=== PATIENT | female | born 1950 ===

== ENCOUNTER 2023-10-07 10:30 | Outpatient (RCR) | payer MEDICARE, SELFPAY ==
--- NOTE | 2023-08-24 17:36 | PT.OIE ---
Current Diagnoses Pain in unspecified ankle and joints of unspecified foot (08/24/23) Other specified joint disorders, right ankle and foot (08/24/23) Unsteadiness on feet (08/24/23) Presence of right artificial ankle joint (08/24/23) Visit Care Team Role Provider Type Harleen Cancino PA-C Family Provider Physician Car Racer Primary Care Provider Specialty: Medical Address: [place], [address] Email: [email or web address] Pablito Santizo DO Attending Provider Non-Staff Referring Provider Specialty: Orthopedics Address: [address] [place] [address], [id number] Email: Physical Therapy Initial Evaluation PT-OP-A Visit Information Start: 08/09/23 17:44 Freq: Status: Active Protocol: Document 08/24/23 09:55 LRN (Rec: 08/24/23 10:41 LRN [id number]) Out-Patient Physical Therapy Visit Information Visit Information Visit Type Initial Evaluation Visit Start Time 09:55 Visit Stop Time 10:39 Visit Number 1 Evaluation Information Evaluation Date 08/24/23 Precautions Precautions Arthritis, R ankle replacement 05/2022, lorin 1993. PT-OP-B Current Condition Start: 08/09/23 17:44 Freq: Status: Active Protocol: Document 08/24/23 09:55 LRN (Rec: 08/24/23 10:41 LRN [id number]) Current Condition History of Current Condition Onset Date 06/2023 Current Complaints Meds for R ankle pain, wants to eliminate pain & address scar tissue History of Current Condition Surgery on R ankle in May with subsequent physical therapy with slowly improvement. On 06/2023,medial side of the R ankle started hurting. Pain was achy and sometimes shooting up the ankle. X-rays showed outcome of surgery was good, no bony changes. Currently once in awhile she has sharp pain radiating up the ankle. Surgeon thought it was because of scar tissue and gave prescription of pain med (high dose IBP), that she has taken for over a month; therefore no pain. Sent to PT to see if there is anything that can ge done. Unsteady on her feet with stair ambulation, but can walk around w/o a problem. Hiked for a couple of days without trouble on mostly flat land. Prior Treatments and Tests Medication Future Testing and Treatments Planned Next surgeon appt will be when done with therapy and done with meds at the end of this month. 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 Neck & back pain daily waking up in mornings, with stress and driving; arthritis. Spiral fx of L tibia - 1969, R ankle replacement 05/2022, PT-OP-C Subjective Start: 08/09/23 17:44 Freq: Status: Active Protocol: Document 08/24/23 09:55 LRN (Rec: 08/24/23 10:41 LRN [id number]) Patient Questionnaires Foot & Ankle Ability Measure- ADL and Sports FAAM-ADL Score 74 FAAM-ADL Impairment 1 to 19% Impaired (Score 67-83 ) FAAM-Sport Score 10 FAAM-Sport Impairment 60 to 79% Impaired (Score 6-11 ) Lower Extremity Functional Scale LEFS Score 61 LEFS Impairment 20 to 39% Impaired (Score 48- 62) OP-PT Pain Assessment Pain Assessment Grid Paper Pain Assessment Grid Completed Yes Location R medial ankle Pain Location Details R medial ankle joint Intensity 3 Scale Used Numeric (0 - 10) Description Aching,Sharp Frequency Intermittent Pain Alleviating Factors Medication PT-OP-D Balance Start: 08/09/23 17:44 Freq: Status: Active Protocol: Document 08/24/23 09:55 LRN (Rec: 08/24/23 10:41 LRN [id number]) Balance Tests Romberg Romberg EO & EC - 60+ secs Single Limb Standing Single Limb- Right 12 Single Limb- Left 5 PT-OP-E Functional Tests Start: 08/09/23 17:44 Freq: Status: Active Protocol: Document 08/24/23 09:55 LRN (Rec: 08/24/23 10:41 LRN [id number]) Functional Tests Timed Up and Go (TUG) Score 11 Comments Webbed chair, no use of hands, slip on shoes. TUG Impairment Rating 1 to <20% Impaired (Score 11) PT-OP-G Mobility & Gait Start: 08/09/23 17:44 Freq: Status: Active Protocol: Document 08/24/23 09:55 LRN (Rec: 08/24/23 10:41 LRN [id number]) OP Gait Assessment Gait Gait Assistance Required: Independent Assistive Devices Assistive Device None Comments Gait Comments Excessive sway. Stair Climbing Evaluation Evaluation Level of Assist On Stairs Independent,Standby Assistance Devices Stair Climbing Assistive Devices None Technique/Endurance Stair Climbing Direction Ascend and Descend Stair Climbing Technique Step Over Step Number of Steps Climbed 4 Comments Stair Climbing Comments Unsteady with ascending and worse with descending stairs. PT-OP-H Neuro Start: 08/09/23 17:44 Freq: Status: Active Protocol: Document 08/24/23 09:55 LRN (Rec: 08/24/23 16:50 LRN [id number]) Sensation Evaluation Gross Sensation Gross Sensation WNL PT-OP-J Posture/Palpation/Skin Start: 08/09/23 17:44 Freq: Status: Active Protocol: Document 08/24/23 09:55 LRN (Rec: 08/24/23 10:41 LRN [id number]) Posture Evaluation Position Standing Head/C-Spine Posture Forward Head L-Spine Posture Flattened Shoulder Posture (L) Elevated Hip Posture (L) Internally Rotated,(R) Externally Rotated Ankle/Foot Posture (R) Calcaneal Inversion Foot Arch (L) Medium Arch,(R) Medium Arch Comments Posture Comments head shifted right, sway back posturing with T/S posterior of greater trochanter, atrophy of gastrocnemius on right, decreased gluteal muscle tone bilaterally, bunions bilaterally. Palpation Assessment Location R ankle Palpation Location R ankle Palpation Findings Soft Tissue Tightness Palpation Details Decreased skin mobility. PT-OP-K Range of Motion Start: 08/09/23 17:44 Freq: Status: Active Protocol: Document 08/24/23 09:55 LRN (Rec: 08/24/23 10:41 LRN [id number]) Knee Goniometric Range of Motion Knee Right Knee ROM WFL Yes Patient Position Supine Comments Decreased with DF & IV Left Knee ROM WFL Yes Ankle and Foot Goniometric Range of Motion Ankle and Foot Right Active Testing Position Supine Dorsiflexion with Knee Extended 5 Plantarflexion 46 Inversion 15 Eversion 10 Left Active Testing Position Supine Dorsiflexion with Knee Extended 12 Plantarflexion 45 Inversion 28 Eversion 13 PT-OP-M Strength Start: 08/09/23 17:44 Freq: Status: Active Protocol: Document 08/24/23 09:55 LRN (Rec: 08/24/23 10:41 LRN [id number]) Knee Strength Knee Manual Muscle Testing Right Comments Strength is 5/5 in major muscle groups. Left Comments Strength is 5/5 in major muscle groups. Ankle/Foot Strength Ankle and Foot Manual Muscle Testing Right Comments Strength is 5/5 in major muscle groups. Left Comments Strength is 5/5 in major muscle groups. PT-OP-Q Treatments Start: 08/09/23 17:44 Freq: Status: Active Protocol: Document 08/24/23 09:55 LRN (Rec: 08/24/23 10:41 LRN [id number]) Self-Care/Home Management Treatment Education Other Education Discussed results of evaluation, goals, and plan of care (POC) with pt, discussed attendance/cx/dns policy; pt agreeable to goals, attendance /cx/dns policy and POC. Activities Self-Care/Home Management Activities I/S pt in HEP: Active ankle AROM: sitting DF/IV/EV PT-OP-T Assessment and Plan Start: 08/09/23 17:44 Freq: Status: Active Protocol: Document 08/24/23 09:55 LRN (Rec: 08/24/23 10:41 LRN [id number]) Physical Therapy Assessment Rehab Potential Rehabilitation Potential Good Evaluation Complexity Number of Personal Factors/Comorbidities 3 or More Number of Body Systems Impaired 4 or More Clinical Presentation at Evaluation Stable Impairments Impairments Balance,Functional Mobility, Pain,ROM,Soft Tissue Mobility, Transfers Goals Two Impairment Decreased balance and stability with stair ambulation. Impairment Balance: SLS 5 secs left, 12 secs right. Short Term Goal (STG) Improve TUG to 10 secs and SLS 12 secs bilaterally. STG Duration 4 wks-09/24/23 Tuck Pointer Goal (LTG) Improve SLS with pt able to ambulate up/down 4-8 steps safely with a stable gait w/o use of railing. LTG Duration 8 wks-10/22/23 One Impairment Pt lacks appropriate self care HEP Short Term Goal (STG) Pt will be educated in HEP of balance ex's. STG Duration 4 wks-09/24/23 Tuck Pointer Goal (LTG) Pt will be independent in an effective self care HEP for R ankle mobility and functional strengthening of the R>L hip and hip/knee/ankle complex. LTG Duration 8 wks-10/22/23 Three Impairment Decreased functional mobility due to pain. Impairment Difficulty getting up/down off the ground w/o having to use a tool in the ground to push on. 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 Ankle AROM in deg's (supine): DF (knee extended) 5 right, 12 left, IV 15 right, 28 left, EV 10 right, 13 left (PF is WNL). Short Term Goal (STG) Improve R ankle mobility with pt able to get up/down off the ground w/o having to use a tool in the ground to push on. 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 LTG Duration 8 wks-10/22/23 Assessment Summary Assessment Pt is a 73 yo female who I am familiar with. She present with decreased standing static and dynamic balance and instability with stair ambulation, she is dysfunctional with transfer from squat to stand due to decreased R ankle mobility, pain, and hip weakness. Pt will will benefit from skilled physical therapy to improve safety with stair ambulation and function with gardening. Pt will benefit from therapy to work towards achieving the above stated goals. Physical Therapy Plan Frequency and Duration Frequency of Treatment 2x/Week Duration of treatment (weeks) 8 Plan of Care Start Date 08/24/23 Plan of Care End Date 10/22/23 Therapeutic Interventions Therapeutic Interventions Balance Training,Gait Training ,Home Exercise Program,Manual Therapy,Neuromuscular Re- education,Self-Care/Home Management,Soft Tissue Mobilization,Therapeutic Activities,Therapeutic Exercises Modalities Cold Pack/Ice Massage Next Visit Focus/Plan Next Note Type Treatment Note Next Visit Plan Next: Check hip/core strength and assess Balance, Tinetti and/or Katz. HEP: R ankle ROM ex and hip/ knee/ankle complex strengthening and if needed core strengthening. STM: R medial ankle to improve mobility. Stair & gait training Neuro Re-ed for balance ( static & dynamic) training.
--- NOTE | 2023-08-24 17:37 | PT.OPPOC ---
Physical, Occupational & Speech Therapy At [facility] Current Diagnoses Pain in unspecified ankle and joints of unspecified foot (08/24/23) Other specified joint disorders, right ankle and foot (08/24/23) Unsteadiness on feet (08/24/23) Presence of right artificial ankle joint (08/24/23) Visit Care Team Role Provider Type Harleen Cancino PA-C Family Provider Physician Heavy Equipment Sales Manager Primary Care Provider Specialty: Medical Address: [place], [address] Email: [email or web address] Pablito Santizo DO Attending Provider Non-Staff Referring Provider Specialty: Orthopedics Address: [address] [place] [address], [id number] Email: Plan Of Care PT-OP-T Assessment and Plan Start: 08/09/23 17:44 Freq: Status: Active Protocol: Document 08/24/23 09:55 LRN (Rec: 08/24/23 10:41 LRN [id number]) Physical Therapy Assessment Rehab Potential Rehabilitation Potential Good Evaluation Complexity Number of Personal Factors/Comorbidities 3 or More Number of Body Systems Impaired 4 or More Clinical Presentation at Evaluation Stable Impairments Impairments Balance,Functional Mobility, Pain,ROM,Soft Tissue Mobility, Transfers Goals Two Impairment Decreased balance and stability with stair ambulation. Impairment Balance: SLS 5 secs left, 12 secs right. Short Term Goal (STG) Improve TUG to 10 secs and SLS 12 secs bilaterally. STG Duration 4 wks-09/24/23 Armature Bander Goal (LTG) Improve SLS with pt able to ambulate up/down 4-8 steps safely with a stable gait w/o use of railing. LTG Duration 8 wks-10/22/23 One Impairment Pt lacks appropriate self care HEP Short Term Goal (STG) Pt will be educated in HEP of balance ex's. STG Duration 4 wks-09/24/23 Half-Way Goal (LTG) Pt will be independent in an effective self care HEP for R ankle mobility and functional strengthening of the R>L hip and hip/knee/ankle complex. LTG Duration 8 wks-10/22/23 Three Impairment Decreased functional mobility due to pain. Impairment Difficulty getting up/down off the ground w/o having to use a tool in the ground to push on. 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 Ankle AROM in deg's (supine): DF (knee extended) 5 right, 12 left, IV 15 right, 28 left, EV 10 right, 13 left (PF is WNL). Short Term Goal (STG) Improve R ankle mobility with pt able to get up/down off the ground w/o having to use a tool in the ground to push on. 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 LTG Duration 8 wks-10/22/23 Assessment Summary Assessment Pt is a 73 yo female who I am familiar with. She present with decreased standing static and dynamic balance and instability with stair ambulation, she is dysfunctional with transfer from squat to stand due to decreased R ankle mobility, pain, and hip weakness. Pt will will benefit from skilled physical therapy to improve safety with stair ambulation and function with gardening. Pt will benefit from therapy to work towards achieving the above stated goals. Physical Therapy Plan Frequency and Duration Frequency of Treatment 2x/Week Duration of treatment (weeks) 8 Plan of Care Start Date 08/24/23 Plan of Care End Date 10/22/23 Therapeutic Interventions Therapeutic Interventions Balance Training,Gait Training ,Home Exercise Program,Manual Therapy,Neuromuscular Re- education,Self-Care/Home Management,Soft Tissue Mobilization,Therapeutic Activities,Therapeutic Exercises Modalities Cold Pack/Ice Massage Next Visit Focus/Plan Next Note Type Treatment Note Next Visit Plan Next: Check hip/core strength and assess Balance, Tinetti and/or Katz. HEP: R ankle ROM ex and hip/ knee/ankle complex strengthening and if needed core strengthening. STM: R medial ankle to improve mobility. Stair & gait training Neuro Re-ed for balance ( static & dynamic) training. Plan of Care Dates Plan of Care Start Date 08/24/23 Plan of Care End Date 10/22/23 Electronically Signed by: Naila Lyon, PT 08/24/23 1737 If you are in agreement with this Plan of Care, please return a signed and dated copy. I have reviewed this Plan of Care and certify that the skilled therapy services above are required to meet the patient?s needs. Physician Signature Date Printed Name and Credentials Clinical Instructor Signature Printed Name and Credentials
--- NOTE | 2023-08-26 11:15 | PT.OTN ---
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 On 06/2023,medial side of the R ankle started hurting. Pain was achy and sometimes shooting up the ankle. X-rays showed outcome of surgery was good, no bony changes. Currently once in awhile she has sharp pain radiating up the ankle. Surgeon thought it was because of scar tissue and gave prescription of pain med (high dose IBP), that she has taken for over a month; therefore no pain. Sent to PT to see if there is anything that can ge done. Unsteady on her feet with stair ambulation, but can walk around w/o a problem. Hiked for a couple of days without trouble on mostly flat land. Prior Treatments and Tests Medication Future Testing and Treatments Planned Next surgeon appt will be when done with therapy and done with meds at the end of this month. 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 Neck & back pain daily waking up in mornings, with stress and driving; arthritis. 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 Compliant with AROM R ankle ex. PT-OP-D Balance Start: 08/09/23 17:44 Freq: Status: Active Protocol: Document 08/24/23 09:55 LRN (Rec: 08/24/23 10:41 LRN [id number]) Balance Tests Romberg Romberg EO & EC - 60+ secs Single Limb Standing Single Limb- Right 12 Single Limb- Left 5 PT-OP-E Functional Tests Start: 08/09/23 17:44 Freq: Status: Active Protocol: Document 08/24/23 09:55 LRN (Rec: 08/24/23 10:41 LRN [id number]) Functional Tests Timed Up and Go (TUG) Score 11 Comments Webbed chair, no use of hands, slip on shoes. TUG Impairment Rating 1 to <20% Impaired (Score 11) PT-OP-G Mobility & Gait Start: 08/09/23 17:44 Freq: Status: Active Protocol: Document 08/24/23 09:55 LRN (Rec: 08/24/23 10:41 LRN [id number]) OP Gait Assessment Gait Gait Assistance Required: Independent Assistive Devices Assistive Device None Comments Gait Comments Excessive sway. Stair Climbing Evaluation Evaluation Level of Assist On Stairs Independent,Standby Assistance Devices Stair Climbing Assistive Devices None Technique/Endurance Stair Climbing Direction Ascend and Descend Stair Climbing Technique Step Over Step Number of Steps Climbed 4 Comments Stair Climbing Comments Unsteady with ascending and worse with descending stairs. PT-OP-H Neuro Start: 08/09/23 17:44 Freq: Status: Active Protocol: Document 08/24/23 09:55 LRN (Rec: 08/24/23 16:50 LRN [id number]) Sensation Evaluation Gross Sensation Gross Sensation WNL PT-OP-J Posture/Palpation/Skin Start: 08/09/23 17:44 Freq: Status: Active Protocol: Document 08/24/23 09:55 LRN (Rec: 08/24/23 10:41 LRN [id number]) Posture Evaluation Position Standing Head/C-Spine Posture Forward Head L-Spine Posture Flattened Shoulder Posture (L) Elevated Hip Posture (L) Internally Rotated,(R) Externally Rotated Ankle/Foot Posture (R) Calcaneal Inversion Foot Arch (L) Medium Arch,(R) Medium Arch Comments Posture Comments head shifted right, sway back posturing with T/S posterior of greater trochanter, atrophy of gastrocnemius on right, decreased gluteal muscle tone bilaterally, bunions bilaterally. Palpation Assessment Location R ankle Palpation Location R ankle Palpation Findings Soft Tissue Tightness Palpation Details Decreased skin mobility. PT-OP-K Range of Motion Start: 08/09/23 17:44 Freq: Status: Active Protocol: Document 08/24/23 09:55 LRN (Rec: 08/24/23 10:41 LRN [id number]) Knee Goniometric Range of Motion Knee Right Knee ROM WFL Yes Patient Position Supine Comments Decreased with DF & IV Left Knee ROM WFL Yes Ankle and Foot Goniometric Range of Motion Ankle and Foot Right Active Testing Position Supine Dorsiflexion with Knee Extended 5 Plantarflexion 46 Inversion 15 Eversion 10 Left Active Testing Position Supine Dorsiflexion with Knee Extended 12 Plantarflexion 45 Inversion 28 Eversion 13 PT-OP-M Strength Start: 08/09/23 17:44 Freq: Status: Active Protocol: Document 08/24/23 09:55 LRN (Rec: 08/24/23 10:41 LRN [id number]) Knee Strength Knee Manual Muscle Testing Right Comments Strength is 5/5 in major muscle groups. Left Comments Strength is 5/5 in major muscle groups. Ankle/Foot Strength Ankle and Foot Manual Muscle Testing Right Comments Strength is 5/5 in major muscle groups. Left Comments Strength is 5/5 in major muscle groups. PT-OP-Q Treatments Start: 08/09/23 17:44 Freq: Status: Active Protocol: Document 08/26/23 10:35 SP (Rec: 08/26/23 11:17 SP [id number]) Therapeutic Exercises Supine Exercises R ankle isometric Supine Exercise Name PF, DF, IV, EV Resistance (progress to use TB next tx) Reps/Minutes 10 reps 10 SH each Comments pnfree Standing Exercises ankle mobility Standing Exercise Name added to HEP Side right Resistance foot on chair, attempt knee pass toe Reps/Minutes x10 Comments pnfree response- limited into DF calf stretch Standing Exercise Name added to HEP: gastroc only Side right Equipment Used lunge stance Reps/Minutes 30 SH x3 Comments knee straight for now, pain medial distal malleolus into soleus stretch DF Manual Therapy Treatment Soft Tissue Mobilization calf Body Location R Comments STMs and ed use rolling pin- support flexibility descending stairs Joint Mobilizations R ankle Joint distal tibfib, talocrual, calcaneal distraction /c med/ lat mob Direction AP Grade II Body Position Supine Comments slight discomfort tibia PA while in neutral ankle pos PT-OP-T Assessment and Plan Start: 08/09/23 17:44 Freq: Status: Active Protocol: Document 08/26/23 10:35 SP (Rec: 08/26/23 11:17 SP [id number]) Physical Therapy Assessment Goals Two Impairment Decreased balance and stability with stair ambulation. Impairment Balance: SLS 5 secs left, 12 secs right. Short Term Goal (STG) Improve TUG to 10 secs and SLS 12 secs bilaterally. STG Duration 4 wks-09/24/23 Residential Goal (LTG) Improve SLS with pt able to ambulate up/down 4-8 steps safely with a stable gait w/o use of railing. LTG Duration 8 wks-10/22/23 One Impairment Pt lacks appropriate self care HEP Short Term Goal (STG) Pt will be educated in HEP of balance ex's. STG Duration 4 wks-09/24/23 [employer] Tower Goal (LTG) Pt will be independent in an effective self care HEP for R ankle mobility and functional strengthening of the R>L hip and hip/knee/ankle complex. LTG Duration 8 wks-10/22/23 Three Impairment Decreased functional mobility due to pain. Impairment Difficulty getting up/down off the ground w/o having to use a tool in the ground to push on. 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 Ankle AROM in deg's (supine): DF (knee extended) 5 right, 12 left, IV 15 right, 28 left, EV 10 right, 13 left (PF is WNL). Short Term Goal (STG) Improve R ankle mobility with pt able to get up/down off the ground w/o having to use a tool in the ground to push on. 08/26/23: added ankle isometric (progress TB next tx), ankle gastroc/soleus and ft on chair for mobility to support AROM allow descend stairs and yard work. 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 LTG Duration 8 wks-10/22/23 Assessment Summary Assessment Pt responded well to manual ankle ROM/mobs with only little discomfort over anterolateral R ankle during PA fib while held in DF neutral. No adverse affects reported during calf stretching or ankle mobility on chair/step to support increase DF. Will work toward strengthening next tx to allow R ankle ROM into DF for descending stairs and pushing wheelbarrow during yard work. Physical Therapy Plan Frequency and Duration Frequency of Treatment 2x/Week Duration of treatment (weeks) 8 Plan of Care Start Date 08/24/23 Plan of Care End Date 10/22/23 Therapeutic Interventions Therapeutic Interventions Balance Training,Gait Training ,Home Exercise Program,Manual Therapy,Neuromuscular Re- education,Self-Care/Home Management,Soft Tissue Mobilization,Therapeutic Activities,Therapeutic Exercises Modalities Cold Pack/Ice Massage Next Visit Focus/Plan Next Note Type Treatment Note Next Visit Plan Assess added ankle mobility and Next tx: Check hip/core strength and assess Balance, Tinetti and/or Katz. HEP: R ankle isometric ex and hip/knee/ankle complex strengthening and if needed core strengthening. STM: R medial ankle to improve mobility. Stair & gait training Neuro Re-ed for balance ( static & dynamic) training.
--- NOTE | 2023-09-02 16:06 | PT.OTN ---
Current Diagnoses Pain in unspecified ankle and joints of unspecified foot (09/02/23) Other specified joint disorders, right ankle and foot (09/02/23) Unsteadiness on feet (09/02/23) Presence of right artificial ankle joint (09/02/23) Physical Therapy Treatment Note PT-OP-A Visit Information Start: 08/09/23 17:44 Freq: Status: Active Protocol: Document 09/02/23 13:58 LRN (Rec: 09/02/23 14:32 LRN [id number]) Out-Patient Physical Therapy Visit Information Visit Information Visit Type Treatment Note Visit Note Pt 13' late for appt. Visit Start Time 13:58 Visit Stop Time 14:30 Visit Number 3 Evaluation Information Evaluation Date 08/24/23 Precautions Precautions Arthritis, R ankle replacement 05/2022-pt to avoid inclines. PT-OP-B Current Condition Start: 08/09/23 17:44 Freq: Status: Active Protocol: Document 08/24/23 09:55 LRN (Rec: 08/24/23 10:41 LRN [id number]) Current Condition History of Current Condition Onset Date 06/2023 Current Complaints Meds for R ankle pain, wants to eliminate pain & address scar tissue History of Current Condition Surgery on R ankle in May with subsequent physical therapy with slowly improvement. On 06/2023,medial side of the R ankle started hurting. Pain was achy and sometimes shooting up the ankle. X-rays showed outcome of surgery was good, no bony changes. Currently once in awhile she has sharp pain radiating up the ankle. Surgeon thought it was because of scar tissue and gave prescription of pain med (high dose IBP), that she has taken for over a month; therefore no pain. Sent to PT to see if there is anything that can ge done. Unsteady on her feet with stair ambulation, but can walk around w/o a problem. Hiked for a couple of days without trouble on mostly flat land. Prior Treatments and Tests Medication Future Testing and Treatments Planned Next surgeon appt will be when done with therapy and done with meds at the end of this month. 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 Neck & back pain daily waking up in mornings, with stress and driving; arthritis. 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 PT-OP-D Balance Start: 08/09/23 17:44 Freq: Status: Active Protocol: Document 08/24/23 09:55 LRN (Rec: 08/24/23 10:41 LRN [id number]) Balance Tests Romberg Romberg EO & EC - 60+ secs Single Limb Standing Single Limb- Right 12 Single Limb- Left 5 PT-OP-E Functional Tests Start: 08/09/23 17:44 Freq: Status: Active Protocol: Document 08/24/23 09:55 LRN (Rec: 08/24/23 10:41 LRN [id number]) Functional Tests Timed Up and Go (TUG) Score 11 Comments Webbed chair, no use of hands, slip on shoes. TUG Impairment Rating 1 to <20% Impaired (Score 11) PT-OP-G Mobility & Gait Start: 08/09/23 17:44 Freq: Status: Active Protocol: Document 08/24/23 09:55 LRN (Rec: 08/24/23 10:41 LRN [id number]) OP Gait Assessment Gait Gait Assistance Required: Independent Assistive Devices Assistive Device None Comments Gait Comments Excessive sway. Stair Climbing Evaluation Evaluation Level of Assist On Stairs Independent,Standby Assistance Devices Stair Climbing Assistive Devices None Technique/Endurance Stair Climbing Direction Ascend and Descend Stair Climbing Technique Step Over Step Number of Steps Climbed 4 Comments Stair Climbing Comments Unsteady with ascending and worse with descending stairs. PT-OP-H Neuro Start: 08/09/23 17:44 Freq: Status: Active Protocol: Document 08/24/23 09:55 LRN (Rec: 08/24/23 16:50 LRN [id number]) Sensation Evaluation Gross Sensation Gross Sensation WNL PT-OP-J Posture/Palpation/Skin Start: 08/09/23 17:44 Freq: Status: Active Protocol: Document 08/24/23 09:55 LRN (Rec: 08/24/23 10:41 LRN [id number]) Posture Evaluation Position Standing Head/C-Spine Posture Forward Head L-Spine Posture Flattened Shoulder Posture (L) Elevated Hip Posture (L) Internally Rotated,(R) Externally Rotated Ankle/Foot Posture (R) Calcaneal Inversion Foot Arch (L) Medium Arch,(R) Medium Arch Comments Posture Comments head shifted right, sway back posturing with T/S posterior of greater trochanter, atrophy of gastrocnemius on right, decreased gluteal muscle tone bilaterally, bunions bilaterally. Palpation Assessment Location R ankle Palpation Location R ankle Palpation Findings Soft Tissue Tightness Palpation Details Decreased skin mobility. PT-OP-K Range of Motion Start: 08/09/23 17:44 Freq: Status: Active Protocol: Document 08/24/23 09:55 LRN (Rec: 08/24/23 10:41 LRN [id number]) Knee Goniometric Range of Motion Knee Right Knee ROM WFL Yes Patient Position Supine Comments Decreased with DF & IV Left Knee ROM WFL Yes Ankle and Foot Goniometric Range of Motion Ankle and Foot Right Active Testing Position Supine Dorsiflexion with Knee Extended 5 Plantarflexion 46 Inversion 15 Eversion 10 Left Active Testing Position Supine Dorsiflexion with Knee Extended 12 Plantarflexion 45 Inversion 28 Eversion 13 PT-OP-M Strength Start: 08/09/23 17:44 Freq: Status: Active Protocol: Document 08/24/23 09:55 LRN (Rec: 08/24/23 10:41 LRN [id number]) Knee Strength Knee Manual Muscle Testing Right Comments Strength is 5/5 in major muscle groups. Left Comments Strength is 5/5 in major muscle groups. Ankle/Foot Strength Ankle and Foot Manual Muscle Testing Right Comments Strength is 5/5 in major muscle groups. Left Comments Strength is 5/5 in major muscle groups. PT-OP-Q Treatments Start: 08/09/23 17:44 Freq: Status: Active Protocol: Document 09/02/23 13:58 LRN (Rec: 09/02/23 14:32 LRN [id number]) Therapeutic Exercises Supine Exercises R ankle isometric Supine Exercise Name PF, DF, IV, EV Resistance (progress to use TB next tx) Reps/Minutes 10 reps 10 SH each Comments pnfree Sitting Exercises Ankle TB strengthening Sitting Exercise Name PF, DF, IV, EV Side right Reps/Minutes 10-15x each Comments Extra time taken to determine TB placement & coord of mvmt Standing Exercises ankle mobility Side right Resistance foot on 2nd step, attempt knee pass toe Reps/Minutes x10 each Comments pnfree response- limited into DF calf stretch Standing Exercise Name Verbal review - pt had no concerns. Manual Therapy Treatment Joint Mobilizations R ankle Joint distal tibfib, talocrual, calcaneal distraction /c med/ lat mob Direction AP Grade II Body Position Supine Comments slight discomfort lateral ankle with calcaneal distraction. Self-Care/Home Management Treatment Activities Self-Care/Home Management Activities Issued & reviewed HEP: TBand ankle strengthening ex. PT-OP-T Assessment and Plan Start: 08/09/23 17:44 Freq: Status: Active Protocol: Document 09/02/23 13:58 LRN (Rec: 09/02/23 14:32 LRN [id number]) Physical Therapy Assessment Goals Two Impairment Decreased balance and stability with stair ambulation. Impairment Balance: SLS 5 secs left, 12 secs right. Short Term Goal (STG) Improve TUG to 10 secs and SLS 12 secs bilaterally. STG Duration 4 wks-09/24/23 Custodial Services Manager Goal (LTG) Improve SLS with pt able to ambulate up/down 4-8 steps safely with a stable gait w/o use of railing. LTG Duration 8 wks-10/22/23 One Impairment Pt lacks appropriate self care HEP Short Term Goal (STG) Pt will be educated in HEP of balance ex's. STG Duration 4 wks-09/24/23 Custodial Services Manager Goal (LTG) Pt will be independent in an effective self care HEP for R ankle mobility and functional strengthening of the R>L hip and hip/knee/ankle complex. 09/02/23: Late entry of HEP issued 08/26/23 by Yessy Hoagn: Nahomy 4-way ankle strengthening, runner stretch, Triplanar ankle mob (foot on step). HEP today: TB ankle 4 way strengthening with Lev 2 TB issued. LTG Duration 8 wks-10/22/23 progressed Three Impairment Decreased functional mobility due to pain. Impairment Difficulty getting up/down off the ground w/o having to use a tool in the ground to push on. 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 Ankle AROM in deg's (supine): DF (knee extended) 5 right, 12 left, IV 15 right, 28 left, EV 10 right, 13 left (PF is WNL). Short Term Goal (STG) Improve R ankle mobility with pt able to get up/down off the ground w/o having to use a tool in the ground to push on. 08/26/23: added ankle isometric (progress TB next tx), ankle gastroc/soleus and ft on chair for mobility to support AROM allow descend stairs and yard work. 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 LTG Duration 8 wks-10/22/23 Assessment Summary Assessment Pt is a 73 yo female with decreased standing static and dynamic balance, instability with stair ambulation, dysfunctional with squat to stand transfer due to R ankle decr'd mobility, pain, and hip weakness. Today pt needed review of previously issued HEP and she needs handouts for HEP as she tends to forget her exercises. Pt well healed scar is bound down, but mobility of ankle appears fairly good. Meloxicam appears to be helping to reduce her pain. Physical Therapy Plan Frequency and Duration Frequency of Treatment 2x/Week Duration of treatment (weeks) 8 Plan of Care Start Date 08/24/23 Plan of Care End Date 10/22/23 Next Visit Focus/Plan Next Note Type Treatment Note Next Visit Plan Next tx: Check hip/core strength and assess Balance, Tinetti and/or Katz. HEP: R hip/knee/ankle complex strengthening and if needed core strengthening. STM: R medial ankle to improve mobility. Stair & gait training Neuro Re-ed for balance ( static & dynamic) training.
--- NOTE | 2023-09-07 11:44 | PT.OTN ---
Current Diagnoses Pain in unspecified ankle and joints of unspecified foot (09/07/23) Other specified joint disorders, right ankle and foot (09/07/23) Unsteadiness on feet (09/07/23) Presence of right artificial ankle joint (09/07/23) Physical Therapy Treatment Note PT-OP-A Visit Information Start: 08/09/23 17:44 Freq: Status: Active Protocol: Document 09/07/23 09:49 LRN (Rec: 09/07/23 10:33 LRN [id number]) Out-Patient Physical Therapy Visit Information Visit Information Visit Type Treatment Note Visit Start Time 09:49 Visit Stop Time 10:30 Visit Number 4 Evaluation Information Evaluation Date 08/24/23 Precautions Precautions Arthritis, R ankle replacement 05/2022-pt to avoid inclines. PT-OP-B Current Condition Start: 08/09/23 17:44 Freq: Status: Active Protocol: Document 08/24/23 09:55 LRN (Rec: 08/24/23 10:41 LRN [id number]) Current Condition History of Current Condition Onset Date 06/2023 Current Complaints Meds for R ankle pain, wants to eliminate pain & address scar tissue History of Current Condition Surgery on R ankle in May with subsequent physical therapy with slowly improvement. On 06/2023,medial side of the R ankle started hurting. Pain was achy and sometimes shooting up the ankle. X-rays showed outcome of surgery was good, no bony changes. Currently once in awhile she has sharp pain radiating up the ankle. Surgeon thought it was because of scar tissue and gave prescription of pain med (high dose IBP), that she has taken for over a month; therefore no pain. Sent to PT to see if there is anything that can ge done. Unsteady on her feet with stair ambulation, but can walk around w/o a problem. Hiked for a couple of days without trouble on mostly flat land. Prior Treatments and Tests Medication Future Testing and Treatments Planned Next surgeon appt will be when done with therapy and done with meds at the end of this month. 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 Neck & back pain daily waking up in mornings, with stress and driving; arthritis. 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 No pain currently. PT-OP-D Balance Start: 08/09/23 17:44 Freq: Status: Active Protocol: Document 09/07/23 09:49 LRN (Rec: 09/07/23 10:33 LRN [id number]) Katz Balance Assessment Evaluation Sitting to Standing Ability Independent w/out Hands Unsupported Stance Safely- 2 minutes Sitting Unsupported, Feet on Floor Safely- 2 minutes Standing to Sitting Ability Safely, Minimal Hand Use Transfer Ability Safely, Minimal Hand Use Unsupported Stance- Eyes Open Independent, 1 minute Pick- Up Object From Floor Independent/Safe Look Behind Shoulder - Standing Shifts Weight Well Turning 360 Degrees Turns Bilateral, < 4 secs Unsupported Stance, Alternating Feet on (I)- 8 Steps in 20 secs Stair Unsupported Tandem Stance Assist to Step-15 seconds Total Score Katz Total Score (out of 56 points) 41 Tinetti Balance Assessment Sitting Balance Sitting Balance Steady, safe Arising from Chair Ability to Arise Able, w/o using arms Standing Balance Immediate Standing Balance Steady w/o support Turning Step Pattern Turning 360 Degrees Continuous steps Sitting Down Sitting Down Safe, steady Scoring and Interpretation Tinetti Composite Score (points) 8 PT-OP-E Functional Tests Start: 08/09/23 17:44 Freq: Status: Active Protocol: Document 08/24/23 09:55 LRN (Rec: 08/24/23 10:41 LRN [id number]) Functional Tests Timed Up and Go (TUG) Score 11 Comments Webbed chair, no use of hands, slip on shoes. TUG Impairment Rating 1 to <20% Impaired (Score 11) PT-OP-G Mobility & Gait Start: 08/09/23 17:44 Freq: Status: Active Protocol: Document 08/24/23 09:55 LRN (Rec: 08/24/23 10:41 LRN [id number]) OP Gait Assessment Gait Gait Assistance Required: Independent Assistive Devices Assistive Device None Comments Gait Comments Excessive sway. Stair Climbing Evaluation Evaluation Level of Assist On Stairs Independent,Standby Assistance Devices Stair Climbing Assistive Devices None Technique/Endurance Stair Climbing Direction Ascend and Descend Stair Climbing Technique Step Over Step Number of Steps Climbed 4 Comments Stair Climbing Comments Unsteady with ascending and worse with descending stairs. PT-OP-H Neuro Start: 08/09/23 17:44 Freq: Status: Active Protocol: Document 08/24/23 09:55 LRN (Rec: 08/24/23 16:50 LRN [id number]) Sensation Evaluation Gross Sensation Gross Sensation WNL PT-OP-J Posture/Palpation/Skin Start: 08/09/23 17:44 Freq: Status: Active Protocol: Document 08/24/23 09:55 LRN (Rec: 08/24/23 10:41 LRN [id number]) Posture Evaluation Position Standing Head/C-Spine Posture Forward Head L-Spine Posture Flattened Shoulder Posture (L) Elevated Hip Posture (L) Internally Rotated,(R) Externally Rotated Ankle/Foot Posture (R) Calcaneal Inversion Foot Arch (L) Medium Arch,(R) Medium Arch Comments Posture Comments head shifted right, sway back posturing with T/S posterior of greater trochanter, atrophy of gastrocnemius on right, decreased gluteal muscle tone bilaterally, bunions bilaterally. Palpation Assessment Location R ankle Palpation Location R ankle Palpation Findings Soft Tissue Tightness Palpation Details Decreased skin mobility. PT-OP-K Range of Motion Start: 08/09/23 17:44 Freq: Status: Active Protocol: Document 08/24/23 09:55 LRN (Rec: 08/24/23 10:41 LRN [id number]) Knee Goniometric Range of Motion Knee Right Knee ROM WFL Yes Patient Position Supine Comments Decreased with DF & IV Left Knee ROM WFL Yes Ankle and Foot Goniometric Range of Motion Ankle and Foot Right Active Testing Position Supine Dorsiflexion with Knee Extended 5 Plantarflexion 46 Inversion 15 Eversion 10 Left Active Testing Position Supine Dorsiflexion with Knee Extended 12 Plantarflexion 45 Inversion 28 Eversion 13 PT-OP-M Strength Start: 08/09/23 17:44 Freq: Status: Active Protocol: Document 08/24/23 09:55 LRN (Rec: 08/24/23 10:41 LRN [id number]) Knee Strength Knee Manual Muscle Testing Right Comments Strength is 5/5 in major muscle groups. Left Comments Strength is 5/5 in major muscle groups. Ankle/Foot Strength Ankle and Foot Manual Muscle Testing Right Comments Strength is 5/5 in major muscle groups. Left Comments Strength is 5/5 in major muscle groups. PT-OP-Q Treatments Start: 08/09/23 17:44 Freq: Status: Active Protocol: Document 09/07/23 09:49 LRN (Rec: 09/07/23 10:33 LRN [id number]) Therapeutic Exercises Sitting Exercises Sit<>stand Sitting Exercise Name Hip hinging Reps/Minutes 10x Ankle TB strengthening Sitting Exercise Name PF, DF, IV, EV Side right Reps/Minutes 15x 2 each Comments Xtra time taken for positioning for ex Standing Exercises Trunk Rot Standing Exercise Name Neck and trunk rot Side bilateral Reps/Minutes 6x each Alternate step ups. Side bilateral Reps/Minutes 13 sec each set Comments Feet caught on stairs 2x ankle mobility Side right Resistance foot on 2nd step, attempt knee pass toe Reps/Minutes x10 each (load wgt over toes, medial and lateral to toes) Comments pnfree response- limited into DF calf stretch Standing Exercise Name gastroc stretch- phys cuing upright stance and toes fwd. Side right Equipment Used lunge stance Reps/Minutes 30 SH x3 Comments knee straight for now, pain medial distal malleolus into soleus stretch DF Therapeutic Activity Therapeutic Activity Hip hinge transfer training Name sit<>stand: hip hinging training Reps/Minutes 10x Comments Feet together: 40 secs. Feet apart: 38 secs. Neuro Re-Education Treatment Balance Activities Turning Details Turn to look over shdr & 360 deg's Surface Level Reps/Duration 6x & 1x respectively Comments 360 deg's in 2 secs. Standing balance Details EO, EC, on foam, tandem, Comments Tandem: L ft behind: 13 secs ; R ft behind: 29 secs ( difficulty getting into position). PT-OP-T Assessment and Plan Start: 08/09/23 17:44 Freq: Status: Active Protocol: Document 09/07/23 09:49 LRN (Rec: 09/07/23 10:33 LRN [id number]) Physical Therapy Assessment Goals Two Impairment Decreased balance and stability with stair ambulation. Impairment Balance: SLS 5 secs left, 12 secs right. Short Term Goal (STG) Improve TUG to 10 secs and SLS 12 secs bilaterally. STG Duration 4 wks-09/24/23 Woodworking Craftsman Goal (LTG) Improve SLS with pt able to ambulate up/down 4-8 steps safely with a stable gait w/o use of railing. LTG Duration 8 wks-10/22/23 One Impairment Pt lacks appropriate self care HEP Short Term Goal (STG) Pt will be educated in HEP of balance ex's. STG Duration 4 wks-09/24/23 Woodworking Craftsman Goal (LTG) Pt will be independent in an effective self care HEP for R ankle mobility and functional strengthening of the R>L hip and hip/knee/ankle complex. 09/02/23: Late entry of HEP issued 08/26/23 by Yessy Hogan: Nahomy 4-way ankle strengthening, runner stretch, Triplanar ankle mob (foot on step). HEP today: TB ankle 4 way strengthening with Lev 2 TB issued. LTG Duration 8 wks-10/22/23 progressed Three Impairment Decreased functional mobility due to pain. Impairment Difficulty getting up/down off the ground w/o having to use a tool in the ground to push on. 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 Ankle AROM in deg's (supine): DF (knee extended) 5 right, 12 left, IV 15 right, 28 left, EV 10 right, 13 left (PF is WNL). Short Term Goal (STG) Improve R ankle mobility with pt able to get up/down off the ground w/o having to use a tool in the ground to push on. 08/26/23: added ankle isometric (progress TB next tx), ankle gastroc/soleus and ft on chair for mobility to support AROM allow descend stairs and yard work. 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 LTG Duration 8 wks-10/22/23 Assessment Summary Assessment Pt is a 73 yo female with decreased standing static and dynamic balance, instability with stair ambulation, dysfunctional with squat to stand transfer due to R ankle decr'd mobility, pain, and hip weakness. Today pt notes improved ability to get up/off ground. Tandem balance shows less stability with R foot behind and less balance on unstable (cushion) surface. Fair recall of HEP of ankle strengthening. Physical Therapy Plan Frequency and Duration Frequency of Treatment 2x/Week Duration of treatment (weeks) 8 Plan of Care Start Date 08/24/23 Plan of Care End Date 10/22/23 Next Visit Focus/Plan Next Note Type Treatment Note Next Visit Plan Next tx: Assess ability to get up off ground (STG #3). Check hip/core strength and complete assess of Balance, Tinetti and/or Katz with ex's as needed. HEP: R hip/knee strengthening and if needed core strengthening. Stair & gait training Neuro Re-ed for balance ( static & dynamic) training. STM (if needed): R medial ankle to improve mobility.
--- NOTE | 2023-09-09 08:22 | PT-OP ANOTE ---
Pt called to cancelled <24 hrs, reported horse sick and need attending to, unable to make today's PT appt.
--- NOTE | 2023-09-15 14:25 | PT.OTN ---
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 PT-OP-B Current Condition Start: 08/09/23 17:44 Freq: Status: Active Protocol: Document 08/24/23 09:55 LRN (Rec: 08/24/23 10:41 LRN [id number]) Current Condition History of Current Condition Onset Date 06/2023 Current Complaints Meds for R ankle pain, wants to eliminate pain & address scar tissue History of Current Condition Surgery on R ankle in May with subsequent physical therapy with slowly improvement. On 06/2023,medial side of the R ankle started hurting. Pain was achy and sometimes shooting up the ankle. X-rays showed outcome of surgery was good, no bony changes. Currently once in awhile she has sharp pain radiating up the ankle. Surgeon thought it was because of scar tissue and gave prescription of pain med (high dose IBP), that she has taken for over a month; therefore no pain. Sent to PT to see if there is anything that can ge done. Unsteady on her feet with stair ambulation, but can walk around w/o a problem. Hiked for a couple of days without trouble on mostly flat land. Prior Treatments and Tests Medication Future Testing and Treatments Planned Next surgeon appt will be when done with therapy and done with meds at the end of this month. 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 Neck & back pain daily waking up in mornings, with stress and driving; arthritis. 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 She demonstrates DF RLE advancement but not scuffing, demonstrated flexed posture and guarding in LB, reports her back hurting her arrival today, did alot yard work. PT-OP-D Balance Start: 08/09/23 17:44 Freq: Status: Active Protocol: Document 09/07/23 09:49 LRN (Rec: 09/07/23 10:33 LRN [id number]) Alvarez Balance Assessment Evaluation Sitting to Standing Ability Independent w/out Hands Unsupported Stance Safely- 2 minutes Sitting Unsupported, Feet on Floor Safely- 2 minutes Standing to Sitting Ability Safely, Minimal Hand Use Transfer Ability Safely, Minimal Hand Use Unsupported Stance- Eyes Open Independent, 1 minute Pick- Up Object From Floor Independent/Safe Look Behind Shoulder - Standing Shifts Weight Well Turning 360 Degrees Turns Bilateral, < 4 secs Unsupported Stance, Alternating Feet on (I)- 8 Steps in 20 secs Stair Unsupported Tandem Stance Assist to Step-15 seconds Total Score Alvarez Total Score (out of 56 points) 41 Tinetti Balance Assessment Sitting Balance Sitting Balance Steady, safe Arising from Chair Ability to Arise Able, w/o using arms Standing Balance Immediate Standing Balance Steady w/o support Turning Step Pattern Turning 360 Degrees Continuous steps Sitting Down Sitting Down Safe, steady Scoring and Interpretation Tinetti Composite Score (points) 8 PT-OP-E Functional Tests Start: 08/09/23 17:44 Freq: Status: Active Protocol: Document 08/24/23 09:55 LRN (Rec: 08/24/23 10:41 LRN [id number]) Functional Tests Timed Up and Go (TUG) Score 11 Comments Webbed chair, no use of hands, slip on shoes. TUG Impairment Rating 1 to <20% Impaired (Score 11) PT-OP-G Mobility & Gait Start: 08/09/23 17:44 Freq: Status: Active Protocol: Document 08/24/23 09:55 LRN (Rec: 08/24/23 10:41 LRN [id number]) OP Gait Assessment Gait Gait Assistance Required: Independent Assistive Devices Assistive Device None Comments Gait Comments Excessive sway. Stair Climbing Evaluation Evaluation Level of Assist On Stairs Independent,Standby Assistance Devices Stair Climbing Assistive Devices None Technique/Endurance Stair Climbing Direction Ascend and Descend Stair Climbing Technique Step Over Step Number of Steps Climbed 4 Comments Stair Climbing Comments Unsteady with ascending and worse with descending stairs. PT-OP-H Neuro Start: 08/09/23 17:44 Freq: Status: Active Protocol: Document 08/24/23 09:55 LRN (Rec: 08/24/23 16:50 LRN [id number]) Sensation Evaluation Gross Sensation Gross Sensation WNL PT-OP-J Posture/Palpation/Skin Start: 08/09/23 17:44 Freq: Status: Active Protocol: Document 08/24/23 09:55 LRN (Rec: 08/24/23 10:41 LRN [id number]) Posture Evaluation Position Standing Head/C-Spine Posture Forward Head L-Spine Posture Flattened Shoulder Posture (L) Elevated Hip Posture (L) Internally Rotated,(R) Externally Rotated Ankle/Foot Posture (R) Calcaneal Inversion Foot Arch (L) Medium Arch,(R) Medium Arch Comments Posture Comments head shifted right, sway back posturing with T/S posterior of greater trochanter, atrophy of gastrocnemius on right, decreased gluteal muscle tone bilaterally, bunions bilaterally. Palpation Assessment Location R ankle Palpation Location R ankle Palpation Findings Soft Tissue Tightness Palpation Details Decreased skin mobility. PT-OP-K Range of Motion Start: 08/09/23 17:44 Freq: Status: Active Protocol: Document 08/24/23 09:55 LRN (Rec: 08/24/23 10:41 LRN [id number]) Knee Goniometric Range of Motion Knee Right Knee ROM WFL Yes Patient Position Supine Comments Decreased with DF & IV Left Knee ROM WFL Yes Ankle and Foot Goniometric Range of Motion Ankle and Foot Right Active Testing Position Supine Dorsiflexion with Knee Extended 5 Plantarflexion 46 Inversion 15 Eversion 10 Left Active Testing Position Supine Dorsiflexion with Knee Extended 12 Plantarflexion 45 Inversion 28 Eversion 13 PT-OP-M Strength Start: 08/09/23 17:44 Freq: Status: Active Protocol: Document 08/24/23 09:55 LRN (Rec: 08/24/23 10:41 LRN [id number]) Knee Strength Knee Manual Muscle Testing Right Comments Strength is 5/5 in major muscle groups. Left Comments Strength is 5/5 in major muscle groups. Ankle/Foot Strength Ankle and Foot Manual Muscle Testing Right Comments Strength is 5/5 in major muscle groups. Left Comments Strength is 5/5 in major muscle groups. 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 Side bilateral Equipment Used 6 20 reps (no UE support) >8 step 2x10 (PRN UE contact) Comments R foot caught 1 x asc and descend contact recovery ankle mobility Side right Resistance foot on 2nd step, chair, 24 box Equipment Used *(next load wt over toes, medial and lateral to toes) Reps/Minutes x10 each (next measure toe from wall) Comments pnfree response- limited into DF calf stretch Standing Exercise Name gastroc stretch- tactil cuing ft straight then toe in for med achilles . Side right Equipment Used off bottom step Reps/Minutes 30 SH x3 Comments knee straight for now, pain medial distal malleolus into soleus stretch DF Other Exercises STMs Other Exercise Name initiated: calf & achilles MWM /c ball vs hand Side right Equipment Used tennis ball- rolling & sustained pressure ankle ROM Comments good feedback response calf tightness reduction Manual Therapy Treatment Soft Tissue Mobilization calf Body Location R Mobilization Type Rolling,Strumming,Sustained Pressure,Other Body Position prone, long sitting Comments prone manual STMs & MWM ankle DF/PF/IV/EV, then long sitting ed and performance tennis ball rolling vs MWM ankle AROM Joint Mobilizations R ankle Joint distal tibfib, talocrual, calcaneal distraction /c med/ lat mob Direction AP Grade II Body Position Supine Comments slight discomfort inferior medial malleolus MWM, ok with pressure reduction and more broad finger pad vs fingertip of therapist PT-OP-T Assessment and Plan Start: 08/09/23 17:44 Freq: Status: Active Protocol: Document 09/15/23 13:45 SP (Rec: 09/15/23 15:41 SP [id number]) Physical Therapy Assessment Goals Two Impairment Decreased balance and stability with stair ambulation. Impairment Balance: SLS 5 secs left, 12 secs right. Short Term Goal (STG) Improve TUG to 10 secs and SLS 12 secs bilaterally. 09/15/23: (see PT note 09/07/23) ALVAREZ 41/56 and TInetti score 8 (partial Bal testing completed). STG Duration 4 wks-09/24/23 Skilled Nursing Goal (LTG) Improve SLS with pt able to ambulate up/down 4-8 steps safely with a stable gait w/o use of railing. LTG Duration 8 wks-10/22/23 One Impairment Pt lacks appropriate self care HEP Short Term Goal (STG) Pt will be educated in HEP of balance ex's. STG Duration 4 wks-09/24/23 Skilled Nursing Goal (LTG) Pt will be independent in an effective self care HEP for R ankle mobility and functional strengthening of the R>L hip and hip/knee/ankle complex. 09/02/23: Late entry of HEP issued 08/26/23 by Yessy Hogan: Nahomy 4-way ankle strengthening, runner stretch, Triplanar ankle mob (foot on step). HEP today: TB ankle 4 way strengthening with Lev 2 TB issued. LTG Duration 8 wks-10/22/23 progressed Three Impairment Decreased functional mobility due to pain. Impairment Difficulty getting up/down off the ground w/o having to use a tool in the ground to push on. 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 Ankle AROM in deg's (supine): DF (knee extended) 5 right, 12 left, IV 15 right, 28 left, EV 10 right, 13 left (PF is WNL). Short Term Goal (STG) Improve R ankle mobility with pt able to get up/down off the ground w/o having to use a tool in the ground to push on. 08/26/23: added ankle isometric (progress TB next tx), ankle gastroc/soleus and ft on chair for mobility to support AROM allow descend stairs and yard work. 09/15/23: goal met, able use UE on floor, only uses tool due to doesn't like hand in the dirt. 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 LTG Duration 8 wks-10/22/23 Progress Towards Goals Progress Comments STG #3 GOAL MET able get on/ off ground hands on floor, doesnt' need use tool support. Assessment Summary Assessment Tx focused on R ankle ROM/ mobility. Pt responded well to manual and ed self application use tennis ball STMs rolling vs sustained pressure ankle ROM under calf with improvement in ankle ROM ableto get knee over toe ankle mobility on 24 box step/ UE support and mproved no pain R inferior medial malleolus during standing incline DF trunk rotation and dymamic calf stretch off step post manual. Improved DF heel toe leaving Physical Therapy Plan Frequency and Duration Frequency of Treatment 2x/Week Duration of treatment (weeks) 8 Plan of Care Start Date 08/24/23 Plan of Care End Date 10/22/23 Therapeutic Interventions Therapeutic Interventions Balance Training,Gait Training ,Home Exercise Program,Manual Therapy,Neuromuscular Re- education,Self-Care/Home Management,Soft Tissue Mobilization,Therapeutic Activities,Therapeutic Exercises Modalities Cold Pack/Ice Massage Next Visit Focus/Plan Next Note Type Treatment Note Next Visit Plan Next tx: Check hip/core strength baseline. HEP: R hip/knee strengthening and if needed core strengthening. Stair & gait training Neuro Re-ed for balance ( static & dynamic) training. STM (if needed): R medial ankle to improve mobility.
--- NOTE | 2023-09-21 09:44 | PT.OTN ---
Current Diagnoses Pain in unspecified ankle and joints of unspecified foot (09/21/23) Other specified joint disorders, right ankle and foot (09/21/23) Unsteadiness on feet (09/21/23) Presence of right artificial ankle joint (09/21/23) Physical Therapy Treatment Note PT-OP-A Visit Information Start: 08/09/23 17:44 Freq: Status: Active Protocol: Document 09/21/23 09:06 SP (Rec: 09/21/23 09:51 SP [id number]) Out-Patient Physical Therapy Visit Information Visit Information Visit Type Treatment Note Visit Start Time 09:06 Visit Stop Time 09:44 Visit Number 6 Number of RISK CONTROL ANALYST Visits 2 Evaluation Information Evaluation Date 08/24/23 Precautions Precautions Arthritis, R ankle replacement 05/2022-pt to avoid inclines. PT-OP-B Current Condition Start: 08/09/23 17:44 Freq: Status: Active Protocol: Document 08/24/23 09:55 LRN (Rec: 08/24/23 10:41 LRN [id number]) Current Condition History of Current Condition Onset Date 06/2023 Current Complaints Meds for R ankle pain, wants to eliminate pain & address scar tissue History of Current Condition Surgery on R ankle in May with subsequent physical therapy with slowly improvement. On 06/2023,medial side of the R ankle started hurting. Pain was achy and sometimes shooting up the ankle. X-rays showed outcome of surgery was good, no bony changes. Currently once in awhile she has sharp pain radiating up the ankle. Surgeon thought it was because of scar tissue and gave prescription of pain med (high dose IBP), that she has taken for over a month; therefore no pain. Sent to PT to see if there is anything that can ge done. Unsteady on her feet with stair ambulation, but can walk around w/o a problem. Hiked for a couple of days without trouble on mostly flat land. Prior Treatments and Tests Medication Future Testing and Treatments Planned Next surgeon appt will be when done with therapy and done with meds at the end of this month. 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 Neck & back pain daily waking up in mornings, with stress and driving; arthritis. 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 Her back hurting upon arrival, flexed posture and decreased stance time on RLE. PT-OP-D Balance Start: 08/09/23 17:44 Freq: Status: Active Protocol: Document 09/07/23 09:49 LRN (Rec: 09/07/23 10:33 LRN [id number]) Alvarez Balance Assessment Evaluation Sitting to Standing Ability Independent w/out Hands Unsupported Stance Safely- 2 minutes Sitting Unsupported, Feet on Floor Safely- 2 minutes Standing to Sitting Ability Safely, Minimal Hand Use Transfer Ability Safely, Minimal Hand Use Unsupported Stance- Eyes Open Independent, 1 minute Pick- Up Object From Floor Independent/Safe Look Behind Shoulder - Standing Shifts Weight Well Turning 360 Degrees Turns Bilateral, < 4 secs Unsupported Stance, Alternating Feet on (I)- 8 Steps in 20 secs Stair Unsupported Tandem Stance Assist to Step-15 seconds Total Score Alvarez Total Score (out of 56 points) 41 Tinetti Balance Assessment Sitting Balance Sitting Balance Steady, safe Arising from Chair Ability to Arise Able, w/o using arms Standing Balance Immediate Standing Balance Steady w/o support Turning Step Pattern Turning 360 Degrees Continuous steps Sitting Down Sitting Down Safe, steady Scoring and Interpretation Tinetti Composite Score (points) 8 PT-OP-E Functional Tests Start: 08/09/23 17:44 Freq: Status: Active Protocol: Document 08/24/23 09:55 LRN (Rec: 08/24/23 10:41 LRN [id number]) Functional Tests Timed Up and Go (TUG) Score 11 Comments Webbed chair, no use of hands, slip on shoes. TUG Impairment Rating 1 to <20% Impaired (Score 11) PT-OP-G Mobility & Gait Start: 08/09/23 17:44 Freq: Status: Active Protocol: Document 08/24/23 09:55 LRN (Rec: 08/24/23 10:41 LRN [id number]) OP Gait Assessment Gait Gait Assistance Required: Independent Assistive Devices Assistive Device None Comments Gait Comments Excessive sway. Stair Climbing Evaluation Evaluation Level of Assist On Stairs Independent,Standby Assistance Devices Stair Climbing Assistive Devices None Technique/Endurance Stair Climbing Direction Ascend and Descend Stair Climbing Technique Step Over Step Number of Steps Climbed 4 Comments Stair Climbing Comments Unsteady with ascending and worse with descending stairs. PT-OP-H Neuro Start: 08/09/23 17:44 Freq: Status: Active Protocol: Document 08/24/23 09:55 LRN (Rec: 08/24/23 16:50 LRN [id number]) Sensation Evaluation Gross Sensation Gross Sensation WNL PT-OP-J Posture/Palpation/Skin Start: 08/09/23 17:44 Freq: Status: Active Protocol: Document 08/24/23 09:55 LRN (Rec: 08/24/23 10:41 LRN [id number]) Posture Evaluation Position Standing Head/C-Spine Posture Forward Head L-Spine Posture Flattened Shoulder Posture (L) Elevated Hip Posture (L) Internally Rotated,(R) Externally Rotated Ankle/Foot Posture (R) Calcaneal Inversion Foot Arch (L) Medium Arch,(R) Medium Arch Comments Posture Comments head shifted right, sway back posturing with T/S posterior of greater trochanter, atrophy of gastrocnemius on right, decreased gluteal muscle tone bilaterally, bunions bilaterally. Palpation Assessment Location R ankle Palpation Location R ankle Palpation Findings Soft Tissue Tightness Palpation Details Decreased skin mobility. PT-OP-K Range of Motion Start: 08/09/23 17:44 Freq: Status: Active Protocol: Document 08/24/23 09:55 LRN (Rec: 08/24/23 10:41 LRN [id number]) Knee Goniometric Range of Motion Knee Right Knee ROM WFL Yes Patient Position Supine Comments Decreased with DF & IV Left Knee ROM WFL Yes Ankle and Foot Goniometric Range of Motion Ankle and Foot Right Active Testing Position Supine Dorsiflexion with Knee Extended 5 Plantarflexion 46 Inversion 15 Eversion 10 Left Active Testing Position Supine Dorsiflexion with Knee Extended 12 Plantarflexion 45 Inversion 28 Eversion 13 PT-OP-M Strength Start: 08/09/23 17:44 Freq: Status: Active Protocol: Document 08/24/23 09:55 LRN (Rec: 08/24/23 10:41 LRN [id number]) Knee Strength Knee Manual Muscle Testing Right Comments Strength is 5/5 in major muscle groups. Left Comments Strength is 5/5 in major muscle groups. Ankle/Foot Strength Ankle and Foot Manual Muscle Testing Right Comments Strength is 5/5 in major muscle groups. Left Comments Strength is 5/5 in major muscle groups. PT-OP-Q Treatments Start: 08/09/23 17:44 Freq: Status: Active Protocol: Document 09/21/23 09:06 SP (Rec: 09/21/23 09:51 SP [id number]) Therapeutic Exercises Standing Exercises ankle mobility Standing Exercise Name added to HEP (see HO) Side right Resistance foot on 2nd step, chair, 24 box Equipment Used TB #2 loop around Rankle & back L leg Reps/Minutes x10 Comments pnfree response improved DF ROM calf stretch Standing Exercise Name gastroc then soleus stretch Side right Equipment Used lunge stance gastroc, smaller DASH soleus Reps/Minutes 30 SH x2 Comments knee straight, shortens stance slight knee bend for soleus Other Exercises STMs Other Exercise Name reviewed ed self use: calf & achilles MWM /c ball Side right Resistance long sitting Equipment Used tennis ball- rolling & sustained pressure ankle ROM Comments good feedback response calf tightness reduction Manual Therapy Treatment Soft Tissue Mobilization calf Body Location R Mobilization Type Rolling,Strumming,Sustained Pressure,Other Body Position Hooklying Comments manual STMs & MWM ankle DF/PF/ IV/EV, then long sitting ed and performance tennis ball rolling vs MWM ankle AROM Joint Mobilizations R ankle Joint distal tibfib, talocrual, calcaneal distraction /c med/ lat mob Direction AP Grade II Body Position Supine Reps/Duration knee into flexion /c 1/2 foam roll under forefoot Comments good feedback mobility, more ankle ROM post Neuro Re-Education Treatment Balance Activities SLS Details added to HEP Comments RLE 5 sec, LLE 2-3 sec Cued tall, scap fac & TA Standing balance Details tandem- added to HEP Comments R behind 30 sec, L behind 22 sec Ed Self-Care/Home Management Treatment Education Other Education added R ankle mobility /c TB, SLS and tandem to HEP. REviewed self MWM ball rolling calf. Ed use MHP (LS) vs CP for back comfort, improved ROM end tx, incorporated during manual. PT-OP-T Assessment and Plan Start: 08/09/23 17:44 Freq: Status: Active Protocol: Document 09/21/23 09:06 SP (Rec: 09/21/23 09:51 SP [id number]) Physical Therapy Assessment Goals Two Impairment Decreased balance and stability with stair ambulation. Impairment Balance: SLS 5 secs left, 12 secs right. Short Term Goal (STG) Improve TUG to 10 secs and SLS 12 secs bilaterally. 09/15/23: (see PT note 09/07/23) ALVAREZ 41/56 and TInetti score 8 (partial Bal testing completed). STG Duration 4 wks-09/24/23 [facility] Goal (LTG) Improve SLS with pt able to ambulate up/down 4-8 steps safely with a stable gait w/o use of railing. 09/21/23: added to HEP: hand written on HO: SLS R 5 sec, L 2-3 sec; Tandem R ft back 30 sec L back 22 sec LTG Duration 8 wks-10/22/23 progressing 09/20 One Impairment Pt lacks appropriate self care HEP Short Term Goal (STG) Pt will be educated in HEP of balance ex's. STG Duration 4 wks-09/24/23 M[facility] Goal (LTG) Pt will be independent in an effective self care HEP for R ankle mobility and functional strengthening of the R>L hip and hip/knee/ankle complex. 09/02/23: Late entry of HEP issued 08/26/23 by Yessy Hogan: Nahomy 4-way ankle strengthening, runner stretch, Triplanar ankle mob (foot on step). HEP today: TB ankle 4 way strengthening with Lev 2 TB issued. LTG Duration 8 wks-10/22/23 progressed Three Impairment Decreased functional mobility due to pain. Impairment Difficulty getting up/down off the ground w/o having to use a tool in the ground to push on. 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 Ankle AROM in deg's (supine): DF (knee extended) 5 right, 12 left, IV 15 right, 28 left, EV 10 right, 13 left (PF is WNL). Short Term Goal (STG) Improve R ankle mobility with pt able to get up/down off the ground w/o having to use a tool in the ground to push on. 08/26/23: added ankle isometric (progress TB next tx), ankle gastroc/soleus and ft on chair for mobility to support AROM allow descend stairs and yard work. 09/15/23: goal met, able use UE on floor, only uses tool due to doesn't like hand in the dirt. 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 LTG Duration 8 wks-10/22/23 Assessment Summary Assessment Tx focused on R ankle ROM/ mobility. Good feedback into DF with added posterior glide manual during ankle mobility, added use TB loop around opp leg. Pt continues to be challenged on SLS time, incorporated tandem stance with ed WB evenly over BLE, which improved SLS time after but not remeasured end tx, pt reported will continue at home as HEP. Pt reported LB felt alot better with use MHP on LB during manual and ankle MWM self STM review. Pt more upright gait leaving, reports back felt better use MHP. Physical Therapy Plan Frequency and Duration Frequency of Treatment 2x/Week Duration of treatment (weeks) 8 Plan of Care Start Date 08/24/23 Plan of Care End Date 10/22/23 Therapeutic Interventions Therapeutic Interventions Balance Training,Gait Training ,Home Exercise Program,Manual Therapy,Neuromuscular Re- education,Self-Care/Home Management,Soft Tissue Mobilization,Therapeutic Activities,Therapeutic Exercises Modalities Cold Pack/Ice Massage Next Visit Focus/Plan Next Note Type Treatment Note Next Visit Plan Assess form/response added ankle mobililty on step/chair /c TB at ankle. Next tx: add plank SL heel raise glut drive . Next: Check hip/core strength baseline. HEP: R hip/knee strengthening and if needed core strengthening. Stair & gait training Neuro Re-ed for balance ( static & dynamic) training. STM (if needed): R medial ankle to improve mobility.
--- NOTE | 2023-09-21 09:44 | PT.OTN ---
Current Diagnoses Pain in unspecified ankle and joints of unspecified foot (09/21/23) Other specified joint disorders, right ankle and foot (09/21/23) Unsteadiness on feet (09/21/23) Presence of right artificial ankle joint (09/21/23) Physical Therapy Treatment Note PT-OP-A Visit Information Start: 08/09/23 17:44 Freq: Status: Active Protocol: Document 09/21/23 09:06 SP (Rec: 09/21/23 09:51 SP [id number]) Out-Patient Physical Therapy Visit Information Visit Information Visit Type Treatment Note Visit Start Time 09:06 Visit Stop Time 09:44 Visit Number 6 Number of CARE TRAINER Visits 2 Evaluation Information Evaluation Date 08/24/23 Precautions Precautions Arthritis, R ankle replacement 05/2022-pt to avoid inclines. PT-OP-B Current Condition Start: 08/09/23 17:44 Freq: Status: Active Protocol: Document 08/24/23 09:55 LRN (Rec: 08/24/23 10:41 LRN [id number]) Current Condition History of Current Condition Onset Date 06/2023 Current Complaints Meds for R ankle pain, wants to eliminate pain & address scar tissue History of Current Condition Surgery on R ankle in May with subsequent physical therapy with slowly improvement. On 06/2023,medial side of the R ankle started hurting. Pain was achy and sometimes shooting up the ankle. X-rays showed outcome of surgery was good, no bony changes. Currently once in awhile she has sharp pain radiating up the ankle. Surgeon thought it was because of scar tissue and gave prescription of pain med (high dose IBP), that she has taken for over a month; therefore no pain. Sent to PT to see if there is anything that can ge done. Unsteady on her feet with stair ambulation, but can walk around w/o a problem. Hiked for a couple of days without trouble on mostly flat land. Prior Treatments and Tests Medication Future Testing and Treatments Planned Next surgeon appt will be when done with therapy and done with meds at the end of this month. 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 Neck & back pain daily waking up in mornings, with stress and driving; arthritis. Spiral fx of L tibia - 1969, R ankle replacement 05/2022, PT-OP-C Subjective Start: 08/09/23 17:44 Freq: Status: Active Protocol: Document 09/21/23 09:06 SP (Rec: 09/21/23 09:51 SP [id number]) OP-PT Subjective Patient Comments Patient Comments Pt reports she felt good after last tx. Her back hurting upon arrival, flexed posture and decreased stance time on RLE. PT-OP-D Balance Start: 08/09/23 17:44 Freq: Status: Active Protocol: Document 09/07/23 09:49 LRN (Rec: 09/07/23 10:33 LRN [id number]) Alvarez Balance Assessment Evaluation Sitting to Standing Ability Independent w/out Hands Unsupported Stance Safely- 2 minutes Sitting Unsupported, Feet on Floor Safely- 2 minutes Standing to Sitting Ability Safely, Minimal Hand Use Transfer Ability Safely, Minimal Hand Use Unsupported Stance- Eyes Open Independent, 1 minute Pick- Up Object From Floor Independent/Safe Look Behind Shoulder - Standing Shifts Weight Well Turning 360 Degrees Turns Bilateral, < 4 secs Unsupported Stance, Alternating Feet on (I)- 8 Steps in 20 secs Stair Unsupported Tandem Stance Assist to Step-15 seconds Total Score Alvarez Total Score (out of 56 points) 41 Tinetti Balance Assessment Sitting Balance Sitting Balance Steady, safe Arising from Chair Ability to Arise Able, w/o using arms Standing Balance Immediate Standing Balance Steady w/o support Turning Step Pattern Turning 360 Degrees Continuous steps Sitting Down Sitting Down Safe, steady Scoring and Interpretation Tinetti Composite Score (points) 8 PT-OP-E Functional Tests Start: 08/09/23 17:44 Freq: Status: Active Protocol: Document 08/24/23 09:55 LRN (Rec: 08/24/23 10:41 LRN [id number]) Functional Tests Timed Up and Go (TUG) Score 11 Comments Webbed chair, no use of hands, slip on shoes. TUG Impairment Rating 1 to <20% Impaired (Score 11) PT-OP-G Mobility & Gait Start: 08/09/23 17:44 Freq: Status: Active Protocol: Document 08/24/23 09:55 LRN (Rec: 08/24/23 10:41 LRN [id number]) OP Gait Assessment Gait Gait Assistance Required: Independent Assistive Devices Assistive Device None Comments Gait Comments Excessive sway. Stair Climbing Evaluation Evaluation Level of Assist On Stairs Independent,Standby Assistance Devices Stair Climbing Assistive Devices None Technique/Endurance Stair Climbing Direction Ascend and Descend Stair Climbing Technique Step Over Step Number of Steps Climbed 4 Comments Stair Climbing Comments Unsteady with ascending and worse with descending stairs. PT-OP-H Neuro Start: 08/09/23 17:44 Freq: Status: Active Protocol: Document 08/24/23 09:55 LRN (Rec: 08/24/23 16:50 LRN [id number]) Sensation Evaluation Gross Sensation Gross Sensation WNL PT-OP-J Posture/Palpation/Skin Start: 08/09/23 17:44 Freq: Status: Active Protocol: Document 08/24/23 09:55 LRN (Rec: 08/24/23 10:41 LRN [id number]) Posture Evaluation Position Standing Head/C-Spine Posture Forward Head L-Spine Posture Flattened Shoulder Posture (L) Elevated Hip Posture (L) Internally Rotated,(R) Externally Rotated Ankle/Foot Posture (R) Calcaneal Inversion Foot Arch (L) Medium Arch,(R) Medium Arch Comments Posture Comments head shifted right, sway back posturing with T/S posterior of greater trochanter, atrophy of gastrocnemius on right, decreased gluteal muscle tone bilaterally, bunions bilaterally. Palpation Assessment Location R ankle Palpation Location R ankle Palpation Findings Soft Tissue Tightness Palpation Details Decreased skin mobility. PT-OP-K Range of Motion Start: 08/09/23 17:44 Freq: Status: Active Protocol: Document 08/24/23 09:55 LRN (Rec: 08/24/23 10:41 LRN [id number]) Knee Goniometric Range of Motion Knee Right Knee ROM WFL Yes Patient Position Supine Comments Decreased with DF & IV Left Knee ROM WFL Yes Ankle and Foot Goniometric Range of Motion Ankle and Foot Right Active Testing Position Supine Dorsiflexion with Knee Extended 5 Plantarflexion 46 Inversion 15 Eversion 10 Left Active Testing Position Supine Dorsiflexion with Knee Extended 12 Plantarflexion 45 Inversion 28 Eversion 13 PT-OP-M Strength Start: 08/09/23 17:44 Freq: Status: Active Protocol: Document 08/24/23 09:55 LRN (Rec: 08/24/23 10:41 LRN [id number]) Knee Strength Knee Manual Muscle Testing Right Comments Strength is 5/5 in major muscle groups. Left Comments Strength is 5/5 in major muscle groups. Ankle/Foot Strength Ankle and Foot Manual Muscle Testing Right Comments Strength is 5/5 in major muscle groups. Left Comments Strength is 5/5 in major muscle groups. PT-OP-Q Treatments Start: 08/09/23 17:44 Freq: Status: Active Protocol: Document 09/21/23 09:06 SP (Rec: 09/21/23 09:51 SP [id number]) Therapeutic Exercises Standing Exercises ankle mobility Standing Exercise Name added to HEP (see HO) Side right Resistance foot on 2nd step, chair, 24 box Equipment Used TB #2 loop around Rankle & back L leg Reps/Minutes x10 Comments pnfree response improved DF ROM calf stretch Standing Exercise Name gastroc then soleus stretch Side right Equipment Used lunge stance gastroc, smaller DASH soleus Reps/Minutes 30 SH x2 Comments knee straight, shortens stance slight knee bend for soleus Other Exercises STMs Other Exercise Name reviewed ed self use: calf & achilles MWM /c ball Side right Resistance long sitting Equipment Used tennis ball- rolling & sustained pressure ankle ROM Comments good feedback response calf tightness reduction Manual Therapy Treatment Soft Tissue Mobilization calf Body Location R Mobilization Type Rolling,Strumming,Sustained Pressure,Other Body Position Hooklying Comments manual STMs & MWM ankle DF/PF/ IV/EV, then long sitting ed and performance tennis ball rolling vs MWM ankle AROM Joint Mobilizations R ankle Joint distal tibfib, talocrual, calcaneal distraction /c med/ lat mob Direction AP Grade II Body Position Supine Reps/Duration knee into flexion /c 1/2 foam roll under forefoot Comments good feedback mobility, more ankle ROM post Neuro Re-Education Treatment Balance Activities SLS Details added to HEP Comments RLE 5 sec, LLE 2-3 sec Cued tall, scap fac & TA Standing balance Details tandem- added to HEP Comments R behind 30 sec, L behind 22 sec Ed Self-Care/Home Management Treatment Education Other Education added R ankle mobility /c TB, SLS and tandem to HEP. REviewed self MWM ball rolling calf. Ed use MHP (LS) vs CP for back comfort, improved ROM end tx, incorporated during manual. PT-OP-T Assessment and Plan Start: 08/09/23 17:44 Freq: Status: Active Protocol: Document 09/21/23 09:06 SP (Rec: 09/21/23 09:51 SP [id number]) Physical Therapy Assessment Goals Two Impairment Decreased balance and stability with stair ambulation. Impairment Balance: SLS 5 secs left, 12 secs right. Short Term Goal (STG) Improve TUG to 10 secs and SLS 12 secs bilaterally. 09/15/23: (see PT note 09/07/23) ALVAREZ 41/56 and TInetti score 8 (partial Bal testing completed). STG Duration 4 wks-09/24/23 Penitentiary Goal (LTG) Improve SLS with pt able to ambulate up/down 4-8 steps safely with a stable gait w/o use of railing. 09/21/23: added to HEP: hand written on HO: SLS R 5 sec, L 2-3 sec; Tandem R ft back 30 sec L back 22 sec LTG Duration 8 wks-10/22/23 progressing 09/20 One Impairment Pt lacks appropriate self care HEP Short Term Goal (STG) Pt will be educated in HEP of balance ex's. STG Duration 4 wks-09/24/23 Penitentiary Goal (LTG) Pt will be independent in an effective self care HEP for R ankle mobility and functional strengthening of the R>L hip and hip/knee/ankle complex. 09/02/23: Late entry of HEP issued 08/26/23 by Yessy Hogan: Nahomy 4-way ankle strengthening, runner stretch, Triplanar ankle mob (foot on step). HEP today: TB ankle 4 way strengthening with Lev 2 TB issued. LTG Duration 8 wks-10/22/23 progressed Three Impairment Decreased functional mobility due to pain. Impairment Difficulty getting up/down off the ground w/o having to use a tool in the ground to push on. 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 Ankle AROM in deg's (supine): DF (knee extended) 5 right, 12 left, IV 15 right, 28 left, EV 10 right, 13 left (PF is WNL). Short Term Goal (STG) Improve R ankle mobility with pt able to get up/down off the ground w/o having to use a tool in the ground to push on. 08/26/23: added ankle isometric (progress TB next tx), ankle gastroc/soleus and ft on chair for mobility to support AROM allow descend stairs and yard work. 09/15/23: goal met, able use UE on floor, only uses tool due to doesn't like hand in the dirt. 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 LTG Duration 8 wks-10/22/23 Assessment Summary Assessment Tx focused on R ankle ROM/ mobility. Good feedback into DF with added posterior glide manual during ankle mobility, added use TB loop around opp leg. Pt continues to be challenged on SLS time, incorporated tandem stance with ed WB evenly over BLE, which improved SLS time after but not remeasured end tx, pt reported will continue at home as HEP. Pt reported LB felt alot better with use MHP on LB during manual and ankle MWM self STM review. Pt more upright gait leaving, reports back felt better use MHP. Physical Therapy Plan Frequency and Duration Frequency of Treatment 2x/Week Duration of treatment (weeks) 8 Plan of Care Start Date 08/24/23 Plan of Care End Date 10/22/23 Therapeutic Interventions Therapeutic Interventions Balance Training,Gait Training ,Home Exercise Program,Manual Therapy,Neuromuscular Re- education,Self-Care/Home Management,Soft Tissue Mobilization,Therapeutic Activities,Therapeutic Exercises Modalities Cold Pack/Ice Massage Next Visit Focus/Plan Next Note Type Treatment Note Next Visit Plan Assess form/response added ankle mobililty on step/chair /c TB at ankle. Next tx: add plank on wall, SL heel raise glut drive with opp LE hip flexion (triple extension/ runner HR). Next: Check hip/core strength baseline. HEP: R hip/knee strengthening and if needed core strengthening. Stair & gait training Neuro Re-ed for balance ( static & dynamic) training. STM (if needed): R medial ankle to improve mobility.
--- NOTE | 2023-09-23 10:36 | PT.OTN ---
Current Diagnoses Pain in unspecified ankle and joints of unspecified foot (09/23/23) Other specified joint disorders, right ankle and foot (09/23/23) Unsteadiness on feet (09/23/23) Presence of right artificial ankle joint (09/23/23) Physical Therapy Treatment Note PT-OP-A Visit Information Start: 08/09/23 17:44 Freq: Status: Active Protocol: Document 09/23/23 09:56 SP (Rec: 09/23/23 10:40 SP [id number]) Out-Patient Physical Therapy Visit Information Visit Information Visit Type Treatment Note Visit Start Time 09:56 Visit Stop Time 10:36 Visit Number 7 Number of GAME DESIGN INSTRUCTOR Visits 3 Evaluation Information Evaluation Date 08/24/23 Precautions Precautions Arthritis, R ankle replacement 05/2022-pt to avoid inclines. PT-OP-B Current Condition Start: 08/09/23 17:44 Freq: Status: Active Protocol: Document 08/24/23 09:55 LRN (Rec: 08/24/23 10:41 LRN [id number]) Current Condition History of Current Condition Onset Date 06/2023 Current Complaints Meds for R ankle pain, wants to eliminate pain & address scar tissue History of Current Condition Surgery on R ankle in May with subsequent physical therapy with slowly improvement. On 06/2023,medial side of the R ankle started hurting. Pain was achy and sometimes shooting up the ankle. X-rays showed outcome of surgery was good, no bony changes. Currently once in awhile she has sharp pain radiating up the ankle. Surgeon thought it was because of scar tissue and gave prescription of pain med (high dose IBP), that she has taken for over a month; therefore no pain. Sent to PT to see if there is anything that can ge done. Unsteady on her feet with stair ambulation, but can walk around w/o a problem. Hiked for a couple of days without trouble on mostly flat land. Prior Treatments and Tests Medication Future Testing and Treatments Planned Next surgeon appt will be when done with therapy and done with meds at the end of this month. 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 Neck & back pain daily waking up in mornings, with stress and driving; arthritis. Spiral fx of L tibia - 1969, R ankle replacement 05/2022, PT-OP-C Subjective Start: 08/09/23 17:44 Freq: Status: Active Protocol: Document 09/23/23 09:56 SP (Rec: 09/23/23 10:40 SP [id number]) OP-PT Subjective Patient Comments Patient Comments Pt arrives flexed posture stating back still stiff and hurting but R ankle doing ok doing well with ankle exercies and legs getting stronger. PT-OP-D Balance Start: 08/09/23 17:44 Freq: Status: Active Protocol: Document 09/23/23 09:56 SP (Rec: 09/24/23 16:40 SP [id number]) Alvarez Balance Assessment Total Score Alvarez Impairment Rating 1 to 19% Impaired (Score 45-55 ) PT-OP-E Functional Tests Start: 08/09/23 17:44 Freq: Status: Active Protocol: Document 09/23/23 09:56 SP (Rec: 09/24/23 16:40 SP [id number]) Functional Tests Tinetti Balance and Gait Assessment Balance Score 16 Gait Score 12 Composite Score 28 Balance Score Impairment Rating 0% Impaired (Score 16) Gait Score Impairment Rating 0% Impaired (Score 12) Composite Score Impairment Rating 0% Impaired (Score 28) PT-OP-G Mobility & Gait Start: 08/09/23 17:44 Freq: Status: Active Protocol: Document 08/24/23 09:55 LRN (Rec: 08/24/23 10:41 LRN [id number]) OP Gait Assessment Gait Gait Assistance Required: Independent Assistive Devices Assistive Device None Comments Gait Comments Excessive sway. Stair Climbing Evaluation Evaluation Level of Assist On Stairs Independent,Standby Assistance Devices Stair Climbing Assistive Devices None Technique/Endurance Stair Climbing Direction Ascend and Descend Stair Climbing Technique Step Over Step Number of Steps Climbed 4 Comments Stair Climbing Comments Unsteady with ascending and worse with descending stairs. PT-OP-H Neuro Start: 08/09/23 17:44 Freq: Status: Active Protocol: Document 08/24/23 09:55 LRN (Rec: 08/24/23 16:50 LRN [id number]) Sensation Evaluation Gross Sensation Gross Sensation WNL PT-OP-J Posture/Palpation/Skin Start: 08/09/23 17:44 Freq: Status: Active Protocol: Document 08/24/23 09:55 LRN (Rec: 08/24/23 10:41 LRN [id number]) Posture Evaluation Position Standing Head/C-Spine Posture Forward Head L-Spine Posture Flattened Shoulder Posture (L) Elevated Hip Posture (L) Internally Rotated,(R) Externally Rotated Ankle/Foot Posture (R) Calcaneal Inversion Foot Arch (L) Medium Arch,(R) Medium Arch Comments Posture Comments head shifted right, sway back posturing with T/S posterior of greater trochanter, atrophy of gastrocnemius on right, decreased gluteal muscle tone bilaterally, bunions bilaterally. Palpation Assessment Location R ankle Palpation Location R ankle Palpation Findings Soft Tissue Tightness Palpation Details Decreased skin mobility. PT-OP-K Range of Motion Start: 08/09/23 17:44 Freq: Status: Active Protocol: Document 08/24/23 09:55 LRN (Rec: 08/24/23 10:41 LRN [id number]) Knee Goniometric Range of Motion Knee Right Knee ROM WFL Yes Patient Position Supine Comments Decreased with DF & IV Left Knee ROM WFL Yes Ankle and Foot Goniometric Range of Motion Ankle and Foot Right Active Testing Position Supine Dorsiflexion with Knee Extended 5 Plantarflexion 46 Inversion 15 Eversion 10 Left Active Testing Position Supine Dorsiflexion with Knee Extended 12 Plantarflexion 45 Inversion 28 Eversion 13 PT-OP-M Strength Start: 08/09/23 17:44 Freq: Status: Active Protocol: Document 08/24/23 09:55 LRN (Rec: 08/24/23 10:41 LRN [id number]) Knee Strength Knee Manual Muscle Testing Right Comments Strength is 5/5 in major muscle groups. Left Comments Strength is 5/5 in major muscle groups. Ankle/Foot Strength Ankle and Foot Manual Muscle Testing Right Comments Strength is 5/5 in major muscle groups. Left Comments Strength is 5/5 in major muscle groups. PT-OP-Q Treatments Start: 08/09/23 17:44 Freq: Status: Active Protocol: Document 09/23/23 09:56 SP (Rec: 09/23/23 10:40 SP [id number]) Cardio Equipment Recumbent Bicycle Duration (Minutes) 4 Resistance 4 Seat Position in 3 (small wedge behind back) Other cued ankle ROM Bicycle (Upright) Duration (Minutes) 3 Resistance 4 Seat Position 4- pnfree back and good ankle mobility Other ed for proper fit seat height (assess for regular bike home) Therapeutic Exercises Supine Exercises SL bridge Supine Exercise Name trialed for hip abd and core fac strengthening Side bilateral Resistance AROM- opp LE 90/90 Reps/Minutes 2x5 reps Comments cued TA and SENIOR HEALTH EDUCATOR- improved core & hip fac, challenge core no pain Standing Exercises Plank wall, single heel raise Standing Exercise Name added to HEP Side right Reps/Minutes 2x10 Comments cued tall posture, core TA support back, Neuro Re-Education Treatment Balance Activities Clayton, Gianna Comments Tinetti 28/28, Alvarez 55/56 SLS Details assess goal Comments RLE 12 sec, LLE 15 sec Cued tall, scap fac & TA 1. added SLS band UE throw motions PT-OP-T Assessment and Plan Start: 08/09/23 17:44 Freq: Status: Active Protocol: Document 09/23/23 09:56 SP (Rec: 09/23/23 10:40 SP [id number]) Physical Therapy Assessment Goals Two Impairment Decreased balance and stability with stair ambulation. Impairment Balance: SLS 5 secs left, 12 secs right. Short Term Goal (STG) Improve TUG to 10 secs and SLS 12 secs bilaterally. 09/15/23: (see PT note 09/07/23) ALVAREZ 41/56 and TInetti score 8 (partial Bal testing completed). 09/23/23: GOAL MET: SLS: R 15 sec, LLE 12 sec, improved TUG 8 sec, improve by 8 Tinetti 16/16. ALVAREZ/56 (decrease 23 sec tandem RLE back position) STG Duration 4 wks-09/24/23 GOAL MET: Personal Care Service Provider Goal (LTG) Improve SLS with pt able to ambulate up/down 4-8 steps safely with a stable gait w/o use of railing. 09/21/23: added to HEP: hand written on HO: SLS R 5 sec, L 2-3 sec; Tandem R ft back 30 sec L back 22 sec LTG Duration 8 wks-10/22/23 progressing 09/20 One Impairment Pt lacks appropriate self care HEP Short Term Goal (STG) Pt will be educated in HEP of balance ex's. STG Duration 4 wks-09/24/23 Fdc Goal (LTG) Pt will be independent in an effective self care HEP for R ankle mobility and functional strengthening of the R>L hip and hip/knee/ankle complex. 09/02/23: Late entry of HEP issued 08/26/23 by Yessy Hogan: Nahomy 4-way ankle strengthening, runner stretch, Triplanar ankle mob (foot on step). HEP today: TB ankle 4 way strengthening with Lev 2 TB issued. 09/23/23: added SL heel raise plank on wall triple extension , SLS band UE punching/trunkr rotation for dynamic progress stability. LTG Duration 8 wks-10/22/23 progressed Three Impairment Decreased functional mobility due to pain. Impairment Difficulty getting up/down off the ground w/o having to use a tool in the ground to push on. Difficulty pushing wheelbarrows with weeds and debris while at work like (2 clients of [employer] and [employer]). Ankle AROM in deg's (supine): DF (knee extended) 5 right, 12 left, IV 15 right, 28 left, EV 10 right, 13 left (PF is WNL). Short Term Goal (STG) Improve R ankle mobility with pt able to get up/down off the ground w/o having to use a tool in the ground to push on. 08/26/23: added ankle isometric (progress TB next tx), ankle gastroc/soleus and ft on chair for mobility to support AROM allow descend stairs and yard work. 09/15/23: goal met, able use UE on floor, only uses tool due to doesn't like hand in the dirt. STG Duration 4 wks-09/24/23 GOAL MET Fdc Goal (LTG) Improve functional strength with pt able to push a wheelbarrow with weeds and debris in it at work ([employer] - 2 clients). 09/23/23: GOAL MET:no pain and able push off with R foot just not as strong. But limitations is mainly her back . She mentions still cautious pushing shovel into ground R ankle due to hesitant might hurt/do something not feel confident strong. LTG Duration 8 wks-10/22/23 GOAL MET 09/23/23 Progress Towards Goals Progress Comments MET STG #2: balance testing & SLS, see goal details. MET LTG #3: almost full strength R ankle, no pain. Assessment Summary Assessment Trailed recumbent and upright bike for awareness of revolution and if ready return to using her outdoor bike, felt fine on back and ankle, but discussed is stationary. Pt reports feels like her R ankle has gained more strength and stability with no problems affecting her yard work. Improved SLS and tandem stance times. She seems to be more limited with her back pain. She feels she is ready to DC for her ankle and possibly get new referral for her back. GAME DESIGN INSTRUCTOR gave triple extension SL heel lift at wall for progressed strengthening, will follow up with PT next appt and prepare to continue self HEP. Physical Therapy Plan Frequency and Duration Frequency of Treatment 2x/Week Duration of treatment (weeks) 8 Plan of Care Start Date 08/24/23 Plan of Care End Date 10/22/23 Therapeutic Interventions Therapeutic Interventions Balance Training,Gait Training ,Home Exercise Program,Manual Therapy,Neuromuscular Re- education,Self-Care/Home Management,Soft Tissue Mobilization,Therapeutic Activities,Therapeutic Exercises Modalities Cold Pack/Ice Massage Next Visit Focus/Plan Next Note Type Discharge Summary Next Visit Plan Assess plank on wall /c SL heel raise glut drive with opp LE hip flexion (triple extension/runner HR). Possible add SL star glides for progress self dynamic balance progression. Is ready for DC to HEP on own next tx. Next: Check hip/core strength baseline. Neuro Re-ed for balance ( static & dynamic) training.
--- NOTE | 2023-09-28 11:00 | PT-OP ANOTE ---
Pt canceled appt today, nrg. Pt was called with message left that pt needs to reschedule her next appt in order to be seen by PT, clinic number given and date of next appt w/Yessy BUGGY RUNNER given.
--- NOTE | 2023-10-01 10:42 | PT-OP ANOTE ---
Addendum entered and electronically signed by Yessy Hogan, RENATO 10/01/23 10:47: Next appt DC to HEP with PT Idalmis. May get new referral for back. Original Note: Pt was cancelled today's visit due to needing 5thvisit with PT, pt was unavailable PT opening at 145 today. Pt is on waiting list for next week with PT, but next scheduled visit 10/06 with PT.
--- NOTE | 2023-10-07 11:47 | PT.OTN ---
Current Diagnoses Pain in unspecified ankle and joints of unspecified foot (10/07/23) Other specified joint disorders, right ankle and foot (10/07/23) Unsteadiness on feet (10/07/23) Presence of right artificial ankle joint (10/07/23) Physical Therapy Treatment Note PT-OP-A Visit Information Start: 08/09/23 17:44 Freq: Status: Active Protocol: Document 10/07/23 10:36 LRN (Rec: 10/07/23 11:47 LRN [id number]) Out-Patient Physical Therapy Visit Information Visit Information Visit Type Treatment Note Visit Start Time 10:36 Visit Stop Time 11:19 Visit Number 8 Evaluation Information Evaluation Date 08/24/23 Precautions Precautions Arthritis, R ankle replacement 05/2022-pt to avoid inclines. PT-OP-B Current Condition Start: 08/09/23 17:44 Freq: Status: Active Protocol: Document 08/24/23 09:55 LRN (Rec: 08/24/23 10:41 LRN [id number]) Current Condition History of Current Condition Onset Date 06/2023 Current Complaints Meds for R ankle pain, wants to eliminate pain & address scar tissue History of Current Condition Surgery on R ankle in May with subsequent physical therapy with slowly improvement. On 06/2023,medial side of the R ankle started hurting. Pain was achy and sometimes shooting up the ankle. X-rays showed outcome of surgery was good, no bony changes. Currently once in awhile she has sharp pain radiating up the ankle. Surgeon thought it was because of scar tissue and gave prescription of pain med (high dose IBP), that she has taken for over a month; therefore no pain. Sent to PT to see if there is anything that can ge done. Unsteady on her feet with stair ambulation, but can walk around w/o a problem. Hiked for a couple of days without trouble on mostly flat land. Prior Treatments and Tests Medication Future Testing and Treatments Planned Next surgeon appt will be when done with therapy and done with meds at the end of this month. 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 Neck & back pain daily waking up in mornings, with stress and driving; arthritis. 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 Still hurts a little on the inside of the ankle. More sore today for unknown reason, but states she worked yesterday. States her L lower back is functionally limiting, no so much the ankle . Patient Questionnaires Foot & Ankle Ability Measure- ADL and Sports FAAM-ADL Score 78 FAAM-ADL Impairment 1 to 19% Impaired (Score 67-83 ) FAAM-Sport Score 16 FAAM-Sport Impairment 40 to 59% Impaired (Score 12- 18) Lower Extremity Functional Scale LEFS Score 67 LEFS Impairment 1 to 19% Impaired (Score 63-79 ) PT-OP-D Balance Start: 08/09/23 17:44 Freq: Status: Active Protocol: Document 10/07/23 10:36 LRN (Rec: 10/07/23 11:47 LRN [id number]) Balance Tests Single Limb Standing Single Limb- Right 24 secs : w/sandals, arms across chest Single Limb- Left 11 secs : w/sandals, arms across chest PT-OP-E Functional Tests Start: 08/09/23 17:44 Freq: Status: Active Protocol: Document 09/23/23 09:56 SP (Rec: 09/24/23 16:40 SP [id number]) Functional Tests Tinetti Balance and Gait Assessment Balance Score 16 Gait Score 12 Composite Score 28 Balance Score Impairment Rating 0% Impaired (Score 16) Gait Score Impairment Rating 0% Impaired (Score 12) Composite Score Impairment Rating 0% Impaired (Score 28) PT-OP-G Mobility & Gait Start: 08/09/23 17:44 Freq: Status: Active Protocol: Document 08/24/23 09:55 LRN (Rec: 08/24/23 10:41 LRN [id number]) OP Gait Assessment Gait Gait Assistance Required: Independent Assistive Devices Assistive Device None Comments Gait Comments Excessive sway. Stair Climbing Evaluation Evaluation Level of Assist On Stairs Independent,Standby Assistance Devices Stair Climbing Assistive Devices None Technique/Endurance Stair Climbing Direction Ascend and Descend Stair Climbing Technique Step Over Step Number of Steps Climbed 4 Comments Stair Climbing Comments Unsteady with ascending and worse with descending stairs. PT-OP-H Neuro Start: 08/09/23 17:44 Freq: Status: Active Protocol: Document 08/24/23 09:55 LRN (Rec: 08/24/23 16:50 LRN [id number]) Sensation Evaluation Gross Sensation Gross Sensation WNL PT-OP-J Posture/Palpation/Skin Start: 08/09/23 17:44 Freq: Status: Active Protocol: Document 08/24/23 09:55 LRN (Rec: 08/24/23 10:41 LRN [id number]) Posture Evaluation Position Standing Head/C-Spine Posture Forward Head L-Spine Posture Flattened Shoulder Posture (L) Elevated Hip Posture (L) Internally Rotated,(R) Externally Rotated Ankle/Foot Posture (R) Calcaneal Inversion Foot Arch (L) Medium Arch,(R) Medium Arch Comments Posture Comments head shifted right, sway back posturing with T/S posterior of greater trochanter, atrophy of gastrocnemius on right, decreased gluteal muscle tone bilaterally, bunions bilaterally. Palpation Assessment Location R ankle Palpation Location R ankle Palpation Findings Soft Tissue Tightness Palpation Details Decreased skin mobility. PT-OP-K Range of Motion Start: 08/09/23 17:44 Freq: Status: Active Protocol: Document 08/24/23 09:55 LRN (Rec: 08/24/23 10:41 LRN [id number]) Knee Goniometric Range of Motion Knee Right Knee ROM WFL Yes Patient Position Supine Comments Decreased with DF & IV Left Knee ROM WFL Yes Ankle and Foot Goniometric Range of Motion Ankle and Foot Right Active Testing Position Supine Dorsiflexion with Knee Extended 5 Plantarflexion 46 Inversion 15 Eversion 10 Left Active Testing Position Supine Dorsiflexion with Knee Extended 12 Plantarflexion 45 Inversion 28 Eversion 13 PT-OP-M Strength Start: 08/09/23 17:44 Freq: Status: Active Protocol: Document 08/24/23 09:55 LRN (Rec: 08/24/23 10:41 LRN [id number]) Knee Strength Knee Manual Muscle Testing Right Comments Strength is 5/5 in major muscle groups. Left Comments Strength is 5/5 in major muscle groups. Ankle/Foot Strength Ankle and Foot Manual Muscle Testing Right Comments Strength is 5/5 in major muscle groups. Left Comments Strength is 5/5 in major muscle groups. PT-OP-Q Treatments Start: 08/09/23 17:44 Freq: Status: Active Protocol: Document 10/07/23 10:36 LRN (Rec: 10/07/23 11:47 LRN [id number]) Cardio Equipment Recumbent Bicycle Duration (Minutes) 8 Resistance 4 Seat Position 3 Other cued ankle ROM, wedge not needed due to back not as sore Therapeutic Exercises Standing Exercises Plank wall, single heel raise Standing Exercise Name DC'd from HEP after exercise Side right Reps/Minutes until fatigue Comments cued tall posture, core TA support back, Therapeutic Activity Therapeutic Activity Stair ambulation Name Stair ambulation Reps/Minutes 4' Comments up/down with railing & w/o railing. Pt wearing supportive sandals. Hip hinge transfer training Name Sit to stand and standing squat Reps/Minutes 4' Comments a little R ankle pain with standing squat Neuro Re-Education Treatment Balance Activities SLS Comments RLE 24 sec, LLE 11 sec Cued hands across chest, tall, scap fac & TA Pt wearing sandals Standing balance Details SL star glides for progress self dynamic balance: bilateral Equipment slide, support michelle for hands to hover over Reps/Duration 3x each michelle - 3 sets (16') Comments Extra time for training/set up and to determine pt's max fabiano to exercise. Self-Care/Home Management Treatment Education Other Education Pt educated in HEP of times/wk and how to be aware of what might be causing her pain an altnernatives to her HEP as needed to regain current status. Activities Self-Care/Home Management Activities HEP I/S for SL star glides for progress self dynamic balance progression. PT-OP-T Assessment and Plan Start: 08/09/23 17:44 Freq: Status: Active Protocol: Document 10/07/23 10:36 LRN (Rec: 10/07/23 11:47 LRN [id number]) Physical Therapy Assessment Goals Two Impairment Decreased balance and stability with stair ambulation. Impairment Balance: SLS 5 secs left, 12 secs right. Short Term Goal (STG) Improve TUG to 10 secs and SLS 12 secs bilaterally. 09/15/23: (see PT note 09/07/23) ALVAREZ 41/56 and TInetti score 8 (partial Bal testing completed). 09/23/23: GOAL MET: SLS: R 15 sec, LLE 12 sec, improved TUG 8 sec, improve by 8 Tinetti . 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 09/21/23: added to HEP: hand written on HO: SLS R 5 sec, L 2-3 sec; Tandem R ft back 30 sec L back 22 sec 10/07/23: SLS 24 secs R, 11 secs L. Pt able to ambulate up/down 6 stairs without pain and a feeling of stability. LTG Duration 8 wks-10/22/23 (10/07/23: MET GOAL) One Impairment Pt lacks appropriate self care HEP Short Term Goal (STG) Pt will be educated in HEP of balance ex's. 10/07/23: Previously I/S ex of SLS & Tandem stance. I/S pt in SL star glides and to start at level of fatigue and build on reps/time. STG Duration 4 wks-09/24/23 (10/07/23: MET GOAL) Cosmetic Account Coordinator Goal (LTG) Pt will be independent in an effective self care HEP for R ankle mobility and functional strengthening of the R>L hip and hip/knee/ankle complex. 09/02/23: Late entry of HEP issued 08/26/23 by Yessy Hogan: Nahomy 4-way ankle strengthening, runner stretch, Triplanar ankle mob (foot on step). HEP today: TB ankle 4 way strengthening with Lev 2 TB issued. 09/23/23: added SL heel raise plank on wall triple extension , SLS band UE punching/trunkr rotation for dynamic progress stability. 10/07/23: Reviewed HEP and progression at home. LTG Duration 8 wks-10/22/23 (10/07/23: MET GOAL) Three Impairment Decreased functional mobility due to pain. Impairment Difficulty getting up/down off the ground w/o having to use a tool in the ground to push on. 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 Ankle AROM in deg's (supine): DF (knee extended) 5 right, 12 left, IV 15 right, 28 left, EV 10 right, 13 left (PF is WNL). Short Term Goal (STG) Improve R ankle mobility with pt able to get up/down off the ground w/o having to use a tool in the ground to push on. 08/26/23: added ankle isometric (progress TB next tx), ankle gastroc/soleus and ft on chair for mobility to support AROM allow descend stairs and yard work. 09/15/23: goal met, able use UE on floor, only uses tool due to doesn't like hand in the dirt. STG Duration 4 wks-09/24/23 GOAL MET Cosmetic Account Coordinator Goal (LTG) Improve functional strength with pt able to push a wheelbarrow with weeds and debris in it at work ([employer] - 2 clients). 09/23/23: GOAL MET:no pain and able push off with R foot just not as strong. But limitations is mainly her back . She mentions still cautious pushing shovel into ground R ankle due to hesitant might hurt/do something not feel confident strong. LTG Duration 8 wks-10/22/23 GOAL MET 09/23/23 Assessment Summary Assessment Pt is a 73 yo female who initially presented with decreased standing static and dynamic balance, instability with stair ambulation, dysfunctional with squat to stand transfer due to R ankle decr'd mobility, pain, and hip weakness. Pt did not recall the ex: plank on wall /c SL heel raise glut drive with opp LE hip flexion; therefore did not add to HEP. Added I/S for HEP of SL star glides for progress self dynamic balance progression. The pt has improved in function based on LEFS and FAAM scores (see above) and with the reduction of ankle pain with standing squat and no pain with sit<> stand and walking and functional activities. Physical Therapy Plan Discharge Physical Therapy Discharge Reasons Goals Met Discharge Comments Pt has intermittent R ankle pain, probably based on her activity level. She was encouraged to continue her HEP at minimal 2x/week and more if needed for return of pain. The pt is currently more limited with her LBP and further medical asseessment is needed; therefore the pt was referred back to provider low back care. Thank you for your referral.
== END 2023-11-08 11:45 ==
LOC: PHYS 10:30
PROVIDERS: Family Provider Student in an Organized Health Care Education/Training Program; PCP Student in an Organized Health Care Education/Training Program; Referring Provider Orthopaedic Surgery; Visit Provider Orthopaedic Surgery
DX: Z96.661 Presence of right artificial ankle joint (principal); M25.871 Other specified joint disorders, right ankle and foot; R26.81 Unsteadiness on feet; M25.579 Pain in unspecified ankle and joints of unspecified foot
CPT/HCPCS: 97110; 97112; 97140; 97161; 97530; 97535

== ENCOUNTER 2023-11-25 09:02 | Day surgery (SDC) | payer MEDICARE, SELFPAY ==
--- NOTE | 2023-11-25 | PATH_ITS ---
[facility] Accession Number: [id number] No. of containers..02 Tissue . 01 Material submitted: . PART A: ileum - TERMINAL ILEUM PART B: cecum - CECAL . 01 Diagnosis: A. TERMINAL ILEUM, BIOPSY: Small intestinal mucosa with no significant diagnostic abnormality. Negative for active inflammation, dysplasia, or malignancy. - B. CECUM: Colonic mucosa with prominent benign lymphoid aggregate. Negative for active, chronic, or microscopic colitis. Negative for dysplasia and malignancy. Multiple levels were examined. [facility] 11/30/2023 1324 Local . 01 Electronically signed: . Elias Gomez MD, Pathologist NPI- [id number] . 01 Gross description: . A. Received in formalin with two patient identifiers and terminal ileum, are two dexter soft tissue fragments both measuring 0.4 cm in greatest dimension. Submitted in cassette A1. B. Received in formalin with two patient identifiers and cecal biopsies, are two dexter soft tissue fragments both measuring 0.3 cm in greatest dimension. Submitted in cassette B1. ([id number]) /[facility] 11/26/2023 0956 Local . 01 Pathologist provided ICD-10: Z12.11, Z86.010 . 01 CPT . 986681, 327840 Specimen Comment: A courtesy copy of this report has been sent to [phone] Performed at: [address] [id number] MD Tal Jose MD Phone: [phone]
--- NOTE | 2023-11-25 09:23 | P.HP_ITS ---
History of Present Illness History of Present Illness Date Patient Seen: 11/25/23 Time Patient Seen: 09:23 Chief complaint: SDC Narrative: Annalee is a 73 year old woman with a family history of colon cancer (her father had colon cancer) and a personal history of colon polyps. She he is unsure when her last colonoscopy was but it has been less than 10 years [facility] Social History Smoking Status: Former smoker alcohol intake: current Meds Home Medications and Allergies Home Medications Medication Instructions Recorded Confirmed Type alprazolam 0.5 mg tablet 0.5 mg PO BID 01/22/18 02/21/22 History propranolol 20 mg tablet 20 mg PO BID 01/22/18 02/21/22 History trazodone 50 mg tablet 50 mg PO DAILY 01/22/18 02/21/22 History codeine 10 mg-guaifenesin 100 mg/5 10 ml PO Q6H PRN cough #100 mL 05/12/21 02/21/22 Rx mL oral liquid albuterol sulfate 90 mcg/actuation 2 puff inhalation Q6H PRN 05/24/21 02/21/22 Rx aerosol inhaler shortness of breath or wheezing #6.7 grams albuterol sulfate 90 mcg/actuation 2 puff inhalation Q6H PRN 02/21/22 02/21/22 Rx aerosol inhaler shortness of breath or wheezing #6.7 grams albuterol sulfate 90 mcg/actuation 2 puff inhalation Q6H PRN 03/01/22 Rx aerosol inhaler (ProAir HFA) bronchospasm #6.7 grams albuterol sulfate 90 mcg/actuation 2 puff inhalation Q4-6H PRN 01/17/23 01/17/23 Rx aerosol inhaler shortness of breath or wheezing #6.7 grams sodium,potassium,mag sulfates 17.5 See Rx Instructions PO .COMPLEX 10/20/23 Rx gram-3.13 gram-1.6 gram oral soln #354 mL (Suprep Bowel Prep Kit) Allergies Allergy/AdvReac Type Severity Reaction Status Date / Time Sulfa (Sulfonamide Allergy Verified 11/25/23 09:16 Antibiotics) tetracycline Allergy Verified 11/25/23 09:16 Exam Const General: No acute distress Resp Effort & Inspection: normal respiratory effort Assessment & Plan Assessment and plan (1) Personal history of colonic polyps: Status: Acute (2) Family history of colon cancer: Status: Acute Plan We reviewed the risks and benefits of colonoscopy for a personal history of colon polyps and a family history of colon cancer and she would like to proceed. Time-Based Coding :: [TOTAL MINUTES] spent with patient and on the chart (including review of chart, obtaining history, exam, reviewing outside data, placing orders, documenting exam and treatment plan, and counseling patient) on [DATE].
[2023-11-25 09:28] VITALS: BP 142/83; PULSE 66; RESP 18; TEMP 35.9; O2SAT 98
--- NOTE | 2023-11-25 10:18 | PM.OP.COLON ---
Operative Date/Time/Diagnoses Date of procedure: 11/25/23 Time of procedure: 10:18 Pre-op diagnosis: Colon cancer screening Post-op diagnosis: same Procedure & Clinicians Study performed: Colonoscopy Same procedure as scheduled: Yes Surgeon: Olu Barba Procedure Notes Procedure in detail: Surgeon: Olu Barba MD Anesthesia: Zac Sales D.O. Procedure: The patient was brought to the endoscopy suite, placed in left lateral decubitus position. The patient was connected to monitoring devices. A time-out was performed. Sedation was administered. Once the patient was adequately sedated, a digital rectal exam was performed and was normal. The scope was then inserted and advanced to the cecum where the appendiceal orifice was identified and photographed. The terminal ileum was intubated and no abnormalities were found. Random biopsies were taken with cold forceps. The scope was then slowly withdrawn over greater than 6 minutes. There was some mild inflammation in the cecum and random biopsies were taken with cold forceps. The scope was retroflexed in the rectum. No other abnormalities were found. The scope was straightened and removed. The patient was awakened and brought to recovery. Scope withdrawal time: 14 minutes Sedation time: 24 minutes EBL: 5 mL Findings: Mild inflammation of the cecum Post-procedure Disposition: PACU
[2023-11-25 10:20] VITALS: BP 126/73; PULSE 66; RESP 18; TEMP 36.1; O2SAT 96
[2023-11-25 10:25] VITALS: BP 115/72; PULSE 65; RESP 14; O2SAT 99
[2023-11-25 10:30] VITALS: BP 132/80; PULSE 58; RESP 12; O2SAT 100
[2023-11-25 10:35] VITALS: BP 136/80; PULSE 61; RESP 12; TEMP 36.7; O2SAT 99
== END 2023-11-25 10:53 | disposition home or self-care (01) ==
PROVIDERS: Family Provider Student in an Organized Health Care Education/Training Program; PCP Student in an Organized Health Care Education/Training Program; Referring Provider Surgery; Visit Provider Surgery
PROC: 0DJD8ZZ Inspection of Lower Intestinal Tract, Via Natural or Artificial Opening Endoscopic (ICD-10-PCS; CPT 45378; principal; 2023-11-25 10:00)
DX: Z12.11 Encounter for screening for malignant neoplasm of colon (principal); Z86.010 Personal history of colon polyps; Z80.0 Family history of malignant neoplasm of digestive organs; K52.9 Noninfective gastroenteritis and colitis, unspecified
CPT/HCPCS: 45380; J2704

== ENCOUNTER → 2024-06-05 14:27 | Outpatient (CLI) | payer MEDICARE, SELFPAY ==
--- NOTE | 2024-06-05 14:28 | DI.MG.S_ITS ---
BILATERAL DIGITAL SCREENING MAMMOGRAM 3D/2D WITH CAD: 06/05/2024 CLINICAL: Routine screening. Family history of breast cancer. Comparison is made to exams dated: 04/01/2023 mammogram, 10/21/2021 mammogram, and 09/02/2020 mammogram - [facility]. There are scattered areas of fibroglandular density (category b / 25%-50% glandular tissue). Current study was also evaluated with a Computer Aided Detection (CAD) system. No significant masses, calcifications, or other findings are seen in either breast. There has been no significant interval change. IMPRESSION: NEGATIVE There is no mammographic evidence of malignancy. A 1 year screening mammogram is recommended. Based on the Tyrer Cuzick model (a risk assessment model) the patient's lifetime risk is 6.8% and her 10 year risk is 5.1%. According to the ACR, ACS, and NCCN guidelines, an annual breast MRI exam along with mammogram is recommended if the patient's lifetime risk is 20% or greater. This exam was interpreted at Station ID: [id number]. NOTE: For mammograms, a report in lay terms will be sent to the patient. Approximately 15% of breast malignancies will not be visualized mammographically. In the management of a palpable breast mass, a negative mammogram must not discourage biopsy of a clinically suspicious lesion. Electronically Signed By: Afsaneh calabrese/yoko:06/05/2024 17:21:07 letter sent: Normal Exam ACR BI-RADS Category 1: Negative
== END ==
PROVIDERS: Family Provider Student in an Organized Health Care Education/Training Program; PCP Student in an Organized Health Care Education/Training Program; Referring Provider Student in an Organized Health Care Education/Training Program; Visit Provider Student in an Organized Health Care Education/Training Program
DX: Z12.31 Encounter for screening mammogram for malignant neoplasm of breast (principal); Z80.3 Family history of malignant neoplasm of breast
CPT/HCPCS: 77063; 77067